=== PATIENT | female | born 1980 | race Caucasian/White ===

== ENCOUNTER 2020-02-10 11:04 | Outpatient (NON) | payer OTHER, SELFPAY ==
[2020-02-11 13:34] LABS: SARS-CoV-2 RNA PCR Negative
== END 2020-02-10 11:05 ==
DX: Z20.828 Contact with and (suspected) exposure to other viral communicable diseases (principal)
CPT/HCPCS: 87635; C9803; U0003

== ENCOUNTER 2023-04-01 02:27 | Day surgery (SDC) | payer OTHER, SELFPAY ==
--- NOTE | 2023-03-27 16:11 | SUR.PREOP ---
Report to the Outpatient Waiting Room, entrance under the green pavilion located off [facility], at time 0600 on date 04/01/23. Planned Procedure Time: 0730. Time changes happen often and if your time is changed the preop area will call you the afternoon before. - You and your visitor will be asked to self-screen and do not enter if you have any COVID symptoms. - A mask is optional within the hospital at this time. Patients may have clear liquids (water, carbonated beverages, clear teas, apple juice) until 3 hours prior to surgery with a maximum of 20 ounces. - NO CLEAR LIQUIDS AFTER 0430 - No food from midnight until time of surgery - Infants may have breast milk until 4 hours before surgery, infant formula 6 hours prior to surgery. - Children will be allowed to drink immediately following surgery. If applicable, please bring a bottle or sippy cup to assist with drinking. Juice, water, soda, and popsicles are readily available. For infants on formula, please bring formula the day of surgery. Pacifiers are allowed. Take the following medications with a SIP of water the morning of surgery: [id number] Please no make-up, nail tuvaluan, hairspray, perfume, deodorant, or body powder the day of surgery. No jewelry (including any body piercings) or valuables the day of surgery, leave them at home. Please take a shower or bath the night before, or the morning of, surgery with an antibacterial soap. Wear comfortable, loose fitting clothing. Children are encouraged to wear pajamas. - Jewelry must be removed prior to entering the operating room. Rings and piercings that are not removed may be cut off. - The hospital will not accept responsibility for valuables. - Please leave all valuables, including medications, at home the day of surgery. If you are going home after surgery, a licensed route driver salesperson must drive you home. - NO public transportation without another adult if you receive anesthesia. - We recommend that an adult stay with you for 24 hours following discharge. - We also recommend that you do not drive, make important decision, drink alcoholic beverages, or take any drugs that were not prescribed by your health care provider for at least 24 hours after your discharge time. For Pediatric surgeries, we recommend two adults accompany the child home. Follow any additional instructions given to you from your surgeon. If you or anyone in your household have experienced Covid symptoms in the past week, please notify your surgeon or the nurse liaison at the phone number below for possible testing. Telephone instructions given to DANIELLE MADRID and asked if any additional questions and then verbalized understanding. Patient advised to call surgeon office or pre surgery nurse liaison [phone] if any additional questions.
[2023-03-27 16:19] VITALS: BMI 29.1
--- NOTE | 2023-04-01 07:00 | P.PNAN_ITS ---
Anes - Initial Pre Proc Eval Procedure: Operation Date: 04/01/23 07:30 Proposed Procedures p Hysteroscopy with Elena Endometrial Ablation - Dimitry Tariq MD Date/Time: 04/01/23 07:00 Surgeon: Dimitry Tariq MD Pre Op Diagnosis: menorrhagia Patient Data Age: 42 Gender: F Height: 1.7 m Weight: 84.5 kg Allergies Allergy/AdvReac Type Severity Reaction Status Date / Time ibuprofen Allergy Severe Difficulty Verified 04/01/23 06:33 Breathing paroxetine Allergy Unknown Hives Verified 04/01/23 06:33 Home Medications Medication Instructions Recorded Confirmed Type methylphenidate HCl 20 mg tablet 20 mg PO HS 03/27/23 04/01/23 History methylphenidate HCl 36 mg 36 mg PO DAILY 03/27/23 04/01/23 History tablet,extended release 24 hr olanzapine 15 mg tablet 15 mg PO HS 03/27/23 04/01/23 History vilazodone 40 mg tablet 40 mg PO DAILY 03/27/23 04/01/23 History Patient hx anesthesia problems: none Family hx anesthesia problems: none Results Review: All pre-operative results and documents have been reviewed as part of the pre- operative evaluation. [facility] Past Medical History Medical History ADHD Anxiety Arthritis delivery delivered Depression H/O: HTN (hypertension) Headache, migraine Hx of migraines Lt arm numbness Obesity Surgical History Surgical History History of cholecystectomy Hx of LASIK Family History Family History Other Alcoholism Anxiety Cerebrovascular accident Chest pain Depression Drug abuse Headache, migraine Heart disease Hypertension Obesity Psychiatric care Social History Social History Years smoked: 2 Smoking status: Former smoker Tobacco type: cigarettes Smoking end date: 04/20/17 Spiritual care concerns: No Anes - Eval Final PreProcedure Day of Procedure 04/01/23 07:00 Patient weight: overweight Heart: regular rate and rhythm Lungs: decreased breath sounds Airway: Mallampati scale class II Neurological: alert and oriented Last oral intake: >/= 8 hours ASA classification: III Emergent: no Anesthetic plan: proceed Anesthesia type and monitoring: general GIVS and standard monitoring Results Review: All pre-operative results and documents have been reviewed as part of the pre- operative evaluation. Informed Consent: The patient's anesthetic plan and its attendant risks and benefits were discussed with the patient/family/POA. Questions were solicited and answers provided to the satisfaction of the patient/family/POA.
[2023-04-01] MEDS: ACETAMINOPHEN 500 MG TABLET 1000 MG PO (07:10)
[2023-04-01] MEDS: LACTATED RINGERS 1,000 ML 30 ML IV CONT (07:11)
--- NOTE | 2023-04-01 07:14 | WPDHPUPDATE1 ---
History and Physical Update Update Date/Time: 04/01/23 07:14 History and Physical has been reviewed, including an updated exam of the patient. There are NO changes in the patient's condition. Risks, benefits, and alternatives have been discussed and questions answered. Patient agrees to proceed with procedure.
--- NOTE | 2023-04-01 07:19 | PM.IMHP ---
H&P: HPI History of Present Illness Date/Time: 04/01/23 07:19 Chief Complaint: Menorrhagia Narrative: this patient is a 42-year-old female with menorrhagia and endometrial polyp. We agreed to perform hysteroscopy with polypectomy and endometrial ablation. She understands the risks of the procedure. She understands the procedure very well. She understands that injuries may occur that result in hospitalization, more surgery, severe illness. She understands risk of hemorrhage and infection. She denies any nausea, vomiting, fever, chills. She denies any chest pain shortness of breath. Review of Systems Review of Systems: All systems reviewed & are unremarkable except as noted in HPI and below Constitutional: Constitutional: Denies chills, Denies fatigue, Denies fever(s) and Denies weakness Eyes: Eyes: Denies blurry vision, Denies change in vision, Denies loss of peripheral vision, Denies loss of vision, Denies other visual disturbances and Denies eye pain ENT: Denies vertigo, Denies dizziness, Denies hearing loss, Denies mouth pain, Denies nasal obstruction, Denies neck mass and Denies neck pain Cardiovascular: Cardiovascular: Denies chest pain, Denies diaphoresis, Denies syncope, Denies leg edema and Denies dyspnea Respiratory: Respiratory: Denies chest congestion, Denies cough, Denies hemoptysis, Denies dyspnea and Denies wheezing Gastrointestinal: Gastrointestinal: Denies abdominal pain, Denies constipation, Denies diarrhea, Denies nausea and Denies vomiting Genitourinary: Genitourinary: Denies hematuria, Denies change in libido, Denies nocturia, Denies genital lesions, Denies flank pain and Denies urinary urgency Musculoskeletal: Musculoskeletal: Denies abnormal gait, Denies back pain, Denies myalgias, Denies arthralgias, Denies joint swelling, Denies muscle weakness and Denies neck pain Integumentary/Breasts: Skin/Breast: Denies swelling, Denies breast pain, Denies breast mass, Denies dry skin, Denies nipple discharge, Denies unusual bruising and Denies jaundice Neurologic: Denies Neuro-related abnormal movements, Denies Abnormal speech present, Denies abnormal gait, Denies behavioral changes, Denies confusion, Denies vertigo, Denies dizziness, Denies syncope, Denies loss of vision, Denies memory loss, Denies convulsions and Denies weakness Psychiatric: Psychiatric: Denies abnormal sleep pattern, Denies behavioral changes, Denies change in libido, Denies confusion, Denies depression, Denies anhedonia and Denies memory loss Endocrine: Endocrine: Reports no additional endocrine complaints, Denies change in libido and Denies fatigue Hematologic/Lymphatic: Hematologic/Lymphatic: Reports no additional hematologic/lymphatic complaints Allergic/Immunologic: Allergic/Immunologic: Reports no additional allergic/immunologic complaints and Denies wheezing PMFSH Past Medical History Medical History ADHD Anxiety Arthritis delivery delivered Depression H/O: HTN (hypertension) Headache, migraine Hx of migraines Lt arm numbness Obesity Surgical History Surgical History History of cholecystectomy Hx of LASIK Family History Family History Other Alcoholism Anxiety Cerebrovascular accident Chest pain Depression Drug abuse Headache, migraine Heart disease Hypertension Obesity Psychiatric care Social History Social History Years smoked: 2 Smoking status: Former smoker Tobacco type: cigarettes Smoking end date: 04/20/17 Spiritual care concerns: No Meds Home Medications and Allergies Home Medications Medication Instructions Recorded Confirmed Type methylphenidate HCl 20 mg tablet 20 mg PO HS 03/27/23 04/01/23 History methylphenidate HCl 36 mg 36 mg PO HERMANN
[2023-04-01 07:32] VITALS: BP 150/81; PULSE 78; RESP 20; TEMP 36.5; O2SAT 100
[2023-04-01 08:05] VITALS: BP 131/73; PULSE 81; RESP 14; TEMP 36.1; O2SAT 97
--- NOTE | 2023-04-01 08:18 | W.PM.PROC2 ---
Procedure Note - Detailed Date of Procedure 04/01/23 Pre-op Diagnosis menorrhagia Post-op Diagnosis Same Procedure Performed endometrial ablation with hysteroscopy d&c Surgeon Dimitry Tariq MD Anesthesia MAC Indications Severe menorrhagia Findings Normal vulva vagina and cervix. Normal endometrium. Description of Procedure The patient was taken to the operating room. She was prepped and draped in the dorsal lithotomy position after induction of mac anesthesia. A speculum was placed in the vagina. Cervix grasped with a tenaculum. The cervix was dilated to about 1 cm. The hysteroscope was inserted. The above findings were noted. Endometrial curettage was performed with a medium-size curette. All surfaces of the endometrium were affected by the curettage. The specimens were collected and sent to pathology. Measurements were taken of the uterus and cervix. The uterine length was then entered into the hand piece of the Elena device. The device was inserted into the intrauterine cavity. The array of the device was expanded. The balloon cuff was inflated. A good seal was achieved. The energy and safety cycles were initiated and completed. The array was collapsed and the instrument was withdrawn after deflating the balloon cuff. Hysteroscope was reinserted. Above findings were noted. The hysteroscope was removed. The patient tolerated the procedure well. The speculum and tenaculum were removed. She was taken to recovery in stable condition. Sponge lap and needle counts were correct x2. Estimated Blood Loss 15 Pathology Yes Complications No immediate complications Condition Stable Disposition Same day
[2023-04-01 08:35] VITALS: BP 141/86; PULSE 65; RESP 14
[2023-04-01] MEDS: oxyCODONE HCL (*CRX) 5 MG TAB IR PO (08:36)
== END 2023-04-01 08:45 | disposition home or self-care (01) ==
PROVIDERS: Visit Provider Obstetrics & Gynecology
PROC: 0U5B8ZZ Destruction of Endometrium, Via Natural or Artificial Opening Endoscopic (ICD-10-PCS; CPT 58563; principal; 2023-04-01 07:30)
DX: N92.0 Excessive and frequent menstruation with regular cycle (principal); F90.9 Attention-deficit hyperactivity disorder, unspecified type; F41.9 Anxiety disorder, unspecified; Z87.891 Personal history of nicotine dependence
CPT/HCPCS: 58563; 88305; A9270; J1100; J2250; J2405; J2704; J3010; J7120

== ENCOUNTER 2023-07-28 15:23 | Outpatient (CLI) | payer OTHER, MEDICAID, SELFPAY ==
--- NOTE | ~2023-07-28 | MM_ITS ---
EXAMINATION: MM screening nikole BI w alexei HISTORY: Screening mammogram TECHNIQUE: Craniocaudal and mediolateral oblique 3-D tomosynthesis images were obtained and synthetic 2-D images were generated. CAD analysis was submitted and interpreted. COMPARISON: Baseline examination BREAST PARENCHYMAL COMPOSITION: There are scattered areas of fibroglandular density. FINDINGS: There is no evidence of suspicious mass, calcification, or architectural distortion to sugg est malignancy in either breast. IMPRESSION: 1. No mammographic evidence of malignancy. 2. Recommend routine screening mammography in one year. BI-RADS Category 1: Negative Reviewed, dictated and finalized at location A.
== END 2023-07-28 15:24 | disposition home or self-care (01) ==
PROVIDERS: Visit Provider Obstetrics & Gynecology
DX: Z12.31 Encounter for screening mammogram for malignant neoplasm of breast (principal)
CPT/HCPCS: 77063; 77067

== ENCOUNTER 2025-04-14 06:12 | Outpatient (CLI) | payer OTHER, MEDICAID, SELFPAY ==
--- OUTSIDE RECORDS SUMMARY | 2025-04-14 06:15 | XMS_ITS | Encounter Summary ---
Author Organization [facility] Address [address] [place] [address] Care Team Providers Care Hvac R Instructor Name Role Phone Edith Stark NP Primary Care Provider [phone] Encounter Details Date Type Department Care Team (Late st Contact Info) Description 04/01/2025 Playground Sessionst Message Enc [facility] Medical Group Family & Internal Medicine [facility] [address] [place] [address] [place] [address] [facility] [address] [place], [place] [id number] Ear infection Social History Tobacco Use Types Packs/Day Years Used Date Smoking Tobacco: Some Days Cigarettes Passive Smoke Exposure: Past Smokeless Tobacco: Never Alcohol Use Standard Drinks/Week Comments Yes 0 (1 standard drink = 0.6 oz pur e alcohol) rarely AUDIT-C Answer Date Recorded Frequency of Alcohol Consumption Never 04/30/2018 Average Number of Drinks Not on file 019 Frequency of Binge Drinking Not on file 04/20 PHQ-2 Answer Date Recorded Patient Health Questionnaire-2 Score 0 10/19/2024 Comments No Sex and Gender Information Value Date Recorded Sex Assigned at Female 05/04/2024 9:21 AM 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 [place] [address] documented as of this encounter Visit Diagnoses Not on filedocumented in this encounter Additional Health Concerns Assessment Noted Time PHQ-9 Depression Total Score: 4 10/20/19 25 3:52 PM CDT documented as of this encounter Care Teams Hvac R Instructor Relationship Specialty [place] [address] [place] [address] PCP - General Nurse Practitioner Family 03/23/23 documented as of this encounter
--- OUTSIDE RECORDS SUMMARY | 2025-04-14 06:15 | XMS_ITS | Encounter Summary ---
Author Organization [facility] Address [address] [place] [address] Care Team Providers Care Gasoline Engine Inspector Name Role Phone Edith Stark NP Primary Care Provider Encounter Details Date Type Department Care Team (Late st Contact Info) Description 12/28/2024 XenoOne Message Enc [facility] Family & Internal Medicine [facility] [id number] [place] [phone] [place] [address] [facility] [address] [place] [address] E.R. 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 Mcgill ordered the MRI for her. I let Edith know. documented in this encounter Plan of Treatment Upcoming Encounters Date Type Department Care Team (Late st Contact Info) Description 05/04/2025 7:00 AM RETURNED TELEPHONE EQUIPMENT APPRAISER Appointment [facility] [address] [place] [address] [place] [phone] [place] [address] documented as of this encounter Visit Diagnoses Not on filedocumented in this encounter Additional Health Concerns Assessment Noted Time PHQ-9 Depression Total Score: 4 10/20/19 25 3:52 PM CDT documented as of this encounter Care Teams Gasoline Engine Inspector Relationship Specialty [place] [address] [place] [address] PCP - General Nurse Practitioner Family 03/23/23 documented as of this encounter
--- OUTSIDE RECORDS SUMMARY | 2025-04-14 06:15 | XMS_ITS | Encounter Summary ---
Author Organization [facility] Address [address] [place] [address] Care Team Providers Care Delivery Lead Name Role Phone Philippe Ivory MD Primary Care Provide r Encounter Details Date Type Department Care Team (Late st Contact Info) Description 08/06/2003 Emergency [facility] [place], [address] [facility] [address] [place] [address] Er, Authorized P NO ADDRESS ON FILE IRRITABLE COLON (Primary Dx) Social History Tobacco Use Types Packs/Day Years Used Date Smoking Tobacco: Never Assessed Comments Unknown Sex and Gender Information Value Date Recorded Sex Assigned at Not on file Legal Sex Female 3:09 AM 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
--- OUTSIDE RECORDS SUMMARY | 2025-04-14 06:15 | XMS_ITS | Clinical Summary ---
Author Organization [facility] Address [facility] [place] [address] Care Team Providers Care Shadow Graph Weight Operator Name Role Phone Edith Stark NP Primary Care Provider [phone] Allergies Active Allergy Reactions Criticality Noted Date Comments Bupropion Other (see comment) 02/07/2020 Intolerance Hydromorphone Rash Low 04/21/2024 Diphenhydramine Hives 02/05/2015 Ibuprofen Unknown 02/23/2014 Paroxetine Hives 02/23/2014 Medications Cholecalciferol (VITAMIN D) 125 MCG (5000 UT) CapIndications:Vi tamin D deficiency Take 5,000 Units by mouth daily. 4 Active cyclobenzaprine (FLEXERIL) 10 MG tabletIndications :Muscle spasm of back,Chronic bilateral low back pain without sciatica TAKE 1 TABLET(10 MG) BY MOUTH TWICE DAILY NEEDED FOR MUSCLE SPASMS 60 tablet 5 Active ferrous sulfate, 65 mg elemental, 325 (65 FE) MG tabletIndications :Iron deficiency anemia, unspecified iron deficiency anemia type Take 1 tablet (325 mg total) by mouth daily with breakfast. 90 tablet 3 5 Active amLODIPine (NORVASC) 5 MG tabletIndications :Chest pain, unspecified type,Primary hypertension Take 1 tablet (5 mg total) by mouth daily. 90 tablet 3 5 Active OLANZapine (ZYPREXA) 15 MG tabletIndications :Bipolar 1 disorder, depressed (CMS/HCC HHS/HCC) Take 0.5 tablets (7.5 mg total) by mouth nightly at bedtime. 30 tablet 2 5 Active losartan-hydroCHL OROthiazide (HYZAAR) 50-12.5 MG tabletIndications :Primary hypertension Take 1 tablet by mouth daily. 90 tablet 5 Active clonazePAM (KLONOPIN) 0.5 MG tabletIndications :Anxiety Take 1 tablet (0.5 mg total) by mouth 2 (two) times daily as needed for Anxiety. 90 tablet 2 5 Active methylphenidate (RITALIN) 20 MG tabletIndications :Attention deficit hyperactivity disorder (ADHD), predominantly inattentive type Take 1 tablet (20 mg total) by mouth daily with supper. 30 tablet 5 Active methylphenidate CR (CONCERTA) 54 MG tabletIndications :Attention deficit hyperactivity disorder (ADHD), predominantly inattentive type Take 1 tablet (54 mg total) by mouth every morning. 30 tablet 5 Active HYDROcodone-aceta minophen (NORCO) 5-325 MG tabletIndications :Chronic Pain Take 1 tablet by mouth every 8 (eight) hours as needed for Pain. Indications : Chronic Pain 90 tablet 5 Active vilazodone (VIIBRYD) 20 MG tabletIndications :Recurrent major depressive disorder, in partial remission Take 1 tablet (20 mg total) by mouth daily. Take with food 90 tablet 1 5 Active ondansetron (ZOFRAN) 4 MG tabletIndications :Nausea and vomiting, unspecified vomiting type Take 1 tablet (4 mg total) by mouth every 8 (eight) hours as needed. 30 tablet 5 Active pregabalin (LYRICA) 75 MG capsuleIndication s:History of gastric surgery,Numbness and tingling,Chronic bilateral low back pain without sciatica Take 1 capsule (75 mg total) by mouth 2 (two) times daily. 60 capsule 2 5 Active clonazePAM (KLONOPIN) 0.5 MG tabletIndications :Anxiety Take 1 tablet (0.5 mg total) by mouth 2 (two) times daily as needed for Anxiety. 90 tablet 2 5 03/20/20 25 Discontinu ed(Reorder ) methylphenidate (RITALIN) 20 MG tabletIndications :Attention deficit hyperactivity disorder (ADHD), predominantly inattentive type Take 1 tablet (20 mg total) by mouth daily with supper. 30 tablet 5 04/01/20 25 Discontinu ed(Reorder ) methylphenidate CR (CONCERTA) 54 MG tabletIndications :Attention deficit hyperactivity disorder (ADHD), predominantly inattentive type Take 1 tablet (54 mg total) by mouth every morning. 30 tablet 5 04/01/20 25 Discontinu ed(Reorder ) vilazodone (VIIBRYD) 20 MG tabletIndications :Recurrent major depressive disorder, in partial remission Take 1 tablet (20 mg total) by mouth daily. Take with food 30 tablet 5 04/06/20 25 Discontinu ed(Reorder ) HYDROcodone-aceta minophen (NORCO) 5-325 MG tabletIndications :Chronic Pain Take 1 tablet by mouth every 8 (eight) hours as needed for Pain. Indications : Chronic Pain 90 tablet 5 04/05/20 25 Discontinu ed(Reorder ) ondansetron (ZOFRAN) 4 MG tabletIndications :Nausea and vomiting, unspecified vomiting type Take 1 tablet (4 mg total) by mouth every 8 (eight) hours as needed. 30 tablet 5 04/11/20 25 Discontinu ed(Reorder ) pregabalin (LYRICA) 75 MG capsuleIndication s:History of gastric surgery,Numbness and tingling,Chronic bilateral low back pain without sciatica Take 1 capsule (75 mg total) by mouth 2 (two) times daily. 60 capsule 2 5 04/11/20 25 Discontinu ed(Reorder ) Active Problems Problem Noted Date Diagnosed Date Pain in left hip 03/15/2025 Chronic bilateral low back pain without sciatica 03/15/2025 High thyroid stimulating hormone (TSH) level S/P ACL repair 09/02/2024 S/P medial meniscus repair of right knee 025 New ACL tear, right, initial encounter Tear of PCL (posterior cruci ate ligament) of knee, right, initial encounter 05/02/2024 Right knee pain 05/02/2024 Obesity (BMI 30-39.9) 01/12/2024 B12 deficiency 01/12/2024 Vitamin D deficiency 01/12/2024 Primary hypertension 01/12/2024 Assessment & Plan (01/31/2025 3:45 PM CDT): - Blood pressure remains elevated despite being on amlodipine 5 mg daily for nearly two months. Consistent readings in the 160s/100s range are reported, along with dizziness. - Discussed adding losartan 50 mg/hydrochlorothiazide 12.5 mg once daily to her regimen. Advised to continue amlodipine and monitor blood pressure closely. She can take amlodipine in the evening and the new medication in the morning if preferred. Recommended reducing salt intake. Orders: losartan-hydroCHLOROthiazide (HYZAAR) 50-12.5 MG tablet; Take 1 tablet by mouth daily. Chronic right-sided low back pain with left-side d sciatica 01/12/2024 Numbness and tingling 01/12/2024 History of fracture of skull 01/12/2024 Memory loss 01/12/2024 Cannabis use disorder 05/07/2022 Overview (01/04/2024): Health education was provided. Motivational therapy will continue. Bipolar 1 disorder, depressed 05/01/2022 Pain disorder 04/28/2022 Overview (01/04/2024): Last Assessment & Plan: Improving. Will continue Neurontin and NSAIDs will be continued. Tourette's syndrome 04/27/2022 Overview (01/04/2024): Last Assessment & Plan: Ongoing: Low dose of Risperdal. 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 Addition of Risperdal will also help. Meningioma 12/12/2019 Medication management 10/16/2019 Premenstrual dysphoric disorder 05/15/2019 Overview (01/04/2024): Premenstrual dysphoric disorder;Recorded Elsewhere: No Location: [facility] Source: EHR Chronic: N Practice ID: [id number] Billable Time: 02:30:00 PM Bleeding 05/15/2019 Overview (01/04/2024): Abnormal vaginal bleeding;Recorded Elsewhere: No Location: [facility] Source: EHR Chronic: N Practice ID: [id number] Billable Time: 02:30:00 PM Chronic cough 01/04/2019 Assessment & Plan (01/04/2019 2:58 PM CDT): She will try flonase and zyrtec daily for 2 weeks and we will also get PFTs Current severe episode of ma karime depressive disorder without psychotic features without prior episode 05/02/2018 Assessment & Plan (07/13/2018 12:55 PM CDT): Will try switching buproprion to citalpram as I think she would benefit more form SSRI despite her concerns about weight gain -FU in 1 month to assess benefit and if needs dose adjustment Assessment & Plan (05/02/2018 10:06 AM CONTINUOUS DRYOUT OPERATOR): Will try treating with wellbutrin given least likely to affect weight. Also discussed getting a therapist and she has already gotten some names from insurance and plans on following up with that. Discussed what to expect with wellbutrin -FU in 1 month PRINCE (obstructive sleep apnea) 05/02/2018 Assessment & Plan (01/04/2019 2:58 PM CDT): Rec getting as soon as possible as will help with fatigue mood Assessment & Plan (07/13/2018 12:55 PM CDT): Home study showed PRINCE now needs cpap titration. She will call sleep lab here to get set up. Order is in Assessment & Plan (05/02/2018 10:07 AM CONTINUOUS DRYOUT OPERATOR): Has witnessed apnea while sleeping, daytime fatigue. -Will order sleep study Migraine 07/19/2016 Assessment & Plan (05/25/2019 8:05 AM CONTINUOUS DRYOUT OPERATOR): I think headaches right now due to tension headache from neck strain. Will try flexeril at night, con't stretching, heat and reassess after that gets better. May need to change topamax to TCA Insomnia 04/26/2015 PTSD (post-traumatic stress disorder) 08/22/2014 Anxiety 08/16/2014 Chronic daily headache 08/16/2014 Drop attack 08/16/2014 Morbid obesity with BMI of 40.0-44.9, adult 07/20 Assessment & Plan (05/25/2019 8:04 AM CONTINUOUS DRYOUT OPERATOR): Will try and see if saxenda covered. Discussed what to expect. Advised to calori track, keep log of food exercise and UF in 1 month to see how it is going. Resolved Problems Problem Noted Date Diagnosed Date Resolved Date Acute recurrent frontal sinusitis 05/18/2018 09/20/2019 Assessment & Plan (07/13/2018 12:56 PM CDT): Suspect viral but if no improvement in 1-2 days can start the augmentin Assessment & Plan (05/18/2018 1:25 PM CONTINUOUS DRYOUT OPERATOR): Given abrupt worsening, ear exam and duration will treat with augmentin. con't OTC meds if helping with symptoms Encounters Date Type Department Care Team Description 04/06/2025 11:40 AM CONTINUOUS DRYOUT OPERATOR Office Visit [facility] [address] [address] Edith Stark NP Follow Up (Medication management ) 04/06/2025 Travel 04/01/2025 MyChart Message Enc [facility] [address] [place] [id number] Edith Stark, ELI Ear infection 03/15/2025 3:44 PM CONTINUOUS DRYOUT OPERATOR - 03/15/2025 11:59 PM CONTINUOUS DRYOUT OPERATOR Hospital Encounter [facility] [address] [place] [address] Laine Davey, PT Edith Stark NP Low Back Pain; Hip Pain Discharge Disposition: Home or Self Care (Routine Discharge) 03/15/2025 Travel 03/08/2025 1:00 PM CONTINUOUS DRYOUT OPERATOR Office Visit [facility] [address] [address] Edith Stark NP Follow Up (1 month medication management follow up/ left side hip pain ) 03/08/2025 Travel 03/07/2025 Orders Only [facility] [address] [address] Ally Kolb MA 01/31/2025 3:00 PM CDT Office Visit [facility] [address] [address] Andreina Steven MD Hypertension (Dizzines, HTN, chest pain, heart rate 126); Hip Pain (L hip pain/ back pain down leg to knee) 01/31/2025 Travel 01/25/[address] [address] Edith Stark NP Other (S/S of scabies ) from Last 3 Months Immunizations Immunization Administration Dates Next Due FLUCELVAX (ccIIV3, TRIVALENT, 0.5mL) 12/14/2023 Hepatitis B Vac Recomb Adj 2 0 Mcg/0.5ml Im Sosy 12/31/2023,11/26/2023 Influenza Adult (Generic) 01/26/2023,02/03/2018, 04/09/2015 Pneumococcal (Pneumovax 23) 02/09/2020, 5 Tdap (Boostrix) 11/29/2022 Tdap (Generic) 11/26/2023 Family History Medical History Relation Comments Alcohol Abuse Father Heart Attack Father Stroke Father bipolar disorder Sister Relation Status Comments Father Sister Social History Tobacco Use Types Packs/Day Years Used Date Smoking Tobacco: Some Days Cigarettes Passive Smoke Exposure: Past Smokeless Tobacco: Never Tobacco Cessation:Ready to Q uit: No; Counseling Given: Yes Alcohol Use Standard Drinks/Week Comments Yes 0 [...] Sex Assigned at Female 05/04/2024 9:21 AM CONTINUOUS DRYOUT OPERATOR Legal Sex Female 8:14 PM CDT Gender Identity Not on file Sexual Orientation Not on file Last Filed Vital Signs Vital Sign Reading Time Taken Comments Blood Pressure 128/81 04/06/2025 11:42 AM CONTINUOUS DRYOUT OPERATOR Pulse 81 04/06/2025 11:42 AM CONTINUOUS DRYOUT OPERATOR Temperature 36.7 C (98.1 F) 04/06/2025 11:42 AM CONTINUOUS DRYOUT OPERATOR Respiratory Rate 18 04/06/2025 11:42 AM CONTINUOUS DRYOUT OPERATOR Oxygen Saturation 98% 03/08/2025 1:01 PM CONTINUOUS DRYOUT OPERATOR Inhaled Oxygen Concentration - - Weight 59.9 kg (132 lb) 04/06/2025 11:42 AM CONTINUOUS DRYOUT OPERATOR Height 167.6 cm (5' 6) 04/06/2025 11:42 AM CONTINUOUS DRYOUT OPERATOR Body Mass Index 21.31 04/06/2025 11:42 AM CONTINUOUS DRYOUT OPERATOR Plan of Treatment Upcoming Encounters Date Type Department Care Team (Late st Contact Info) Description 05/04/2025 7:00 AM CONTINUOUS DRYOUT OPERATOR Appointment [facility] [address] [place], [place] [id number] [place] [address] [place] [address] Health Maintenance Due Date Last Done Comments Cervical Cancer Screening Pap Smear (Age 30 to 64) Every 3 Years 1979 Colorectal Cancer Screening Colonoscopy (10 Years) 1979 Annual Physical 08/12/1982 HPV Vaccines (1 - 3-dose SCDM series) 08/12/2006 Cervical Cancer Screening Pap with HPV Testing (Age 30 to 64) Every 5 Years 08/12/2009 Cervical Cancer Screening with HPV 08/12/2009 Mammogram Screening 2019 Pneumococcal Vaccine: Pediatrics (0 to 5 Years) and At-Risk Patients (6 to 49 Years) (2 of 2 - PCV) 02/08/2021 02/09/2020, 04/09/2015 Influenza Adult (#1) 2025 12/14/2023, 01/26/2023, 02/03/2018, Additional history exists COVID-19 Vaccine ( season) 2026 12/31/2023, 11/29/2021, 01/17/2021, Additional history exists Postponed from 12/19/2024 (Patient Refused) DTaP, Tdap and Td Vaccines (3 - Td or Tdap) 11/25/2033 11/26/2023, 11/29/2022 Hepatitis C Completed 12/18/2022 Hepatitis B Vaccines Completed 12/31/2023, 11/26/19 24 PHQ-2 (Physician [place]) Completed 10/19/2024 Hepatitis A Vaccines Aged Out No long er eligible based on patient's age to complete this topic Meningococcal B Vaccine Aged Out No l onger eligible based on patient's age to complete this topic Meningococcal Vaccine Aged Out No devorah meng eligible based on patient's age to complete this topic RSV Immunizations Under 20 Months Aged Out No longer eligible based on patient's age to complete this topic Insurance [facility] MEDICAID Advance Directives Documents on File Type Date Recorded Patient Owner Expl anation Advance Directives and Living Will 04/04/2014 12:00 AM ADVANCED DIRECTIVES Advance Directives and Living Will 04/04/2014 12:00 AM ADVANCED DIRECTIVES Advance Directives and Living Will 02/15/2014 12:00 AM ADVANCED DIRECTIVES Advance Directives and Living Will 02/15/2014 12:00 AM ADVANCED DIRECTIVES Advance Directives and Living Will 01/13/2014 12:00 AM ADVANCED DIRECTIVES Advance Directives and Living Will 12/09/2013 12:00 AM ADVANCED DIRECTIVES Care Teams Shadow Graph Weight Operator Relationship Specialty [place] [address] [facility] [address] [place] [address] PCP - General Nurse Practitioner Family 03/23/23
--- OUTSIDE RECORDS SUMMARY | 2025-04-14 06:16 | XMS_ITS | Encounter Summary ---
Author Organization [facility] Address [facility] [place] [address] Care Team Providers Care Lithographic Etcher Name Role Phone Lindy Melissa MD Primary Care Provider [facility] Philippe Najera MD Primary Care Provider [phone] Edith Stark NP Primary Care Provider Fannie Simpson [facility] Primary Care Provider + Ana Azar APRN Primary Care Provider + [phone] Edith Stark APPAREL FASHION DESIGNER Primary Care Provider Encounter Details Date Type Department Care Team (Late st Contact Info) Description 10/28/2017 Abstract [facility] [address] [place] [address] , Generic Conversion, Social History Tobacco Use Types Packs/Day Years Used Date Smoking Tobacco: Never Assessed Comments Unknown Sex and Gender Information Value Date Recorded Sex Assigned at Female 05/04/2024 9:21 AM STATION SUPERVISOR Legal Sex Female 8:14 PM CDT Gender Identity Not on file Sexual Orientation Not on file documented as of this encounter Plan of Treatment Upcoming Encounters Date Type Department Care Team (Late st Contact Info) Description 05/04/2025 7:00 AM STATION SUPERVISOR Appointment [facility] [place] [address] [place] [address] Edith Stark, APPAREL FASHION DESIGNER [address] [place] [address] documented as of this encounter Visit Diagnoses Not on filedocumented in this encounter Additional Health Concerns Infection Onset Date Last Indicated Resolved Time COVID-19 Rule Out 11/04/2019 11/04/2019 11/05/2019 10:48 PM CDT COVID-19 Rule Out 05/27/2023 05/27/2023 05/27/2023 9:47 AM STATION SUPERVISOR COVID-19 Rule Out 05/04/2024 05/04/2024 05/04/2024 9:52 AM STATION SUPERVISOR documented as of this encounter Care Teams Lithographic Etcher Relationship Specialty Start Date End Date Lindy Melissa MD PCP - General INTERNAL MEDICINE 04/30/18 09/19/19 Philippe Ivory MD PCP - General INTERNAL MEDICINE 09/20/19 04/17/22 Edith Stark, ELI [address] [place] [address] PCP - General Nurse Practitioner Family 04/18/2205/26 Fannie Simpson FNP-BC [address] [place] [address] PCP - General Nurse Practitioner Family 05/27/2210/18 Ana Azar APRN [address] [place] [address] PCP - General NURSE PRACTITIONER 10/31/22 03/22/23 Edith Stark, APPAREL FASHION DESIGNER [address] [place] [address] PCP - General Nurse Practitioner Family 03/23/23 documented as of this encounter
--- OUTSIDE RECORDS SUMMARY | 2025-04-14 06:16 | XMS_ITS | Clinical Summary ---
Author Organization [facility] Address [address] [place] [address] Phone Care Team Providers Care Salesperson Terrazzo Tiles Name Role Phone Philippe Ivory MD Primary Care Provide r Allergies Active Allergy Reactions Criticality Noted Date Comments Bupropion Other (See Comments) 02/07/2020 Intolerance Ibuprofen Anaphylaxis High 02/07/2020 Paroxetine Hives High 02/23/2014 Paroxetine Hcl Other (See Comments) 02/07/2020 Intolerance Medications norgestimate-et hinyl estradioL 0.25 mg-35 mcg tablet Take 1 Tablet by mouth daily. Active venlafaxine (EFFEXOR XR) 75 mg Extended Release 24 hour capsule Starting 05/09/22 Take 3 Capsules (225 mg) by mouth daily with breakfast. 90 Capsule 05/08/2022 10:41 AM COPY MANAGER 05/09/2022 Active cholecalciferol , vitamin D3, 1,000 unit Take 2 Tablets (2,000 Units) by mouth daily. 05/09/2022 Active cloNIDine HCL (CATAPRES) 0.2 mg tablet Take 1 Tablet (0.2 mg) by mouth daily at bedtime. 30 Tablet 05/08/2022 10:41 AM COPY MANAGER 05/08/2022 Active cyanocobalamin 1,000 mcg Tablet Starting 05/09/22 Take 1 Tablet (1,000 mcg) by mouth daily. 30 Tablet 05/08/2022 10:41 AM COPY MANAGER 05/09/2022 Active cyclobenzaprine (FLEXERIL) 10 mg tablet Take 1 Tablet (10 mg) by mouth 3 times daily as needed for Spasm. 45 Tablet 05/08/2022 10:41 AM COPY MANAGER 05/08/2022 Active diclofenac sodium (VOLTAREN) 50 mg Tablet, Delayed Release (E.C.) Take 1 Tablet (50 mg) by mouth 3 times daily as needed (pain). 45 Tablet 05/08/2022 10:41 AM COPY MANAGER 05/08/2022 Active multivitamin,ca lcium,minerals, iron,folic acid (THERA-M,THERA- M PLUS) 9 mg iron-400 mcg Tablet Take 1 Tablet by mouth daily. 05/09/2022 Active pantoprazole (PROTONIX) 40 mg Tablet, Delayed Release (E.C.) Starting 05/09/22 Take 1 Tablet (40 mg) by mouth daily. 30 Tablet 05/08/2022 10:41 AM COPY MANAGER 05/09/2022 Active risperiDONE (RisperDAL) 1 mg tablet Take 1 Tablet (1 mg) by mouth 2 times daily. 60 Tablet 05/08/2022 10:41 AM COPY MANAGER 05/08/2022 Active clonazePAM (KlonoPIN) 1 mg tabletIndicatio ns:Generalized anxiety disorder Take 1 Tablet (1 mg) by mouth 2 times daily as needed for Anxiety. 45 Tablet 05/08/2022 10:41 AM COPY MANAGER 05/08/2022 Active Active Problems Problem Noted Date Diagnosed Date Cannabis use disorder 05/07/2022 Overview (05/07/2022): Health education was provided. Motivational therapy will continue. Bipolar 1 disorder, depressed 05/01/2022 Pain disorder 04/28/2022 Assessment & Plan (05/06/2022 9:18 AM COPY MANAGER): Improving. Will continue Neurontin and NSAIDs will be continued. 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 Addition of Risperdal will also help. Assessment & Plan (04/27/2022 3:35 PM COPY MANAGER): Suboptimal control. She has been agitated and aggressive as noted in HPI. Will continue Effexor and haldol prn as needed Severe recurrent major depre ssion without psychotic features 04/27/2022 Assessment & Plan (05/07/2022 9:37 AM COPY MANAGER): Improving. Continue current treatment. Will continue Effexor. Will continue Risperdal as adjunct. Assessment & Plan (04/27/2022 3:36 PM COPY MANAGER): Worsening. Continue current treatment. SP and asssault precautions. she is on 96 hr hold to assess safety risk. Plan: Will continue effexor Tourette's syndrome 04/27/2022 Assessment & Plan (05/07/2022 9:30 AM COPY MANAGER): Ongoing: Low dose of Risperdal. Assessment & Plan (04/27/2022 3:34 PM COPY MANAGER): chronic. She is on concerta will restart Anxiety disorder 04/27/2022 Assessment & Plan (05/01/2022 9:24 AM COPY MANAGER): Uncontrolled. Effexor and Trazodone Assessment & Plan (04/27/2022 3:37 PM COPY MANAGER): chronic and worsening. Will continue klonopin Class 2 obesity in adult 07/23/2020 Assessment & Plan (05/06/2022 9:19 AM COPY MANAGER): Dietary oversight. S/P Gastric bypass. Supplements have been added. Immunizations Immunization Administration Dates Next Due (PNEUMOVAX 23)(50 YRS UP) PN EUMOCOCCAL POLYSACCHARIDE (PPV23) 0.5 ML, IM 02/09/2020 Influenza Seasonal Unspecified Formulation IM Social History Tobacco Use Types Packs/Day Years Used Date Smoking Tobacco: Former Cigarettes 0 Q uit: 2011 Smokeless Tobacco: Never Tobacco Cessation:Counseling Given: Not Answered Alcohol Use Standard Drinks/Week Comments Not Currently 0 (1 standard drink = 0.6 oz pur e alcohol) Comments No Sex and Gender Information Value Date Recorded Sex Assigned at Not on file Legal Sex Female 3:09 AM COPY MANAGER Gender Identity Not on file Sexual Orientation Not on file Last Filed Vital Signs Vital Sign Reading Time Taken Comments Blood Pressure 140/76 05/08/2022 8:23 AM COPY MANAGER Pulse 85 05/08/2022 8:23 AM COPY MANAGER Temperature 35.7 C (96.3 F) 05/08/2022 8:23 AM COPY MANAGER Respiratory Rate 18 05/08/2022 8:23 AM COPY MANAGER Oxygen Saturation 100% 05/08/2022 8:23 AM COPY MANAGER Inhaled Oxygen Concentration - - Weight 99.2 kg (218 lb 9.6 oz) 05/04/2022 10:00 AM COPY MANAGER Height 170.2 cm (5' 7) 04/27/2022 12:16 AM COPY MANAGER Body Mass Index 34.24 04/27/2022 12:16 AM COPY MANAGER Plan of Treatment Health Maintenance Due Date Last Done Comments DTAP/TDAP/TD VACCINES (1 - Tdap) 08/12/1998 HEPATITIS B VACCINES (1 of 3 - 19+ 3-dose series) 07/20 HPV/Cotest (21-29) 08/12/2000 CERVICAL CANCER SCREENING 08/12/2009 HPV/Cotest (30-65) 08/12/2009 PAP SMEAR 08/12/2009 BREAST CANCER SCREENING 2019 COLORECTAL SCREENING 08/12/2024 Colorectal Cancer Screening 08/12/2024 FIT-DNA Q 3 years 08/12/2024 FIT/FOBT Q 1 year 08/12/2024 Flex Sig/CT Colonography Q 5 years 08/12/2024 INFLUENZA VACCINE (#1) 2024 02/03/2018 HPV VACCINES (No Doses Required) Completed Insurance [facility] CHO[facility] FUND OA PLUS [employer] Advance Directives For more information, please contact: [phone] * Full Code (Latest Code Status on File) Date Activated Date Inactivated Comments 04/26/2022 11:34 PM 05/08/2022 2:58 PM * Full Code Date Activated Date Inactivated Comments 07/23/2020 4:45 PM 07/24/2020 2:14 PM * Full Code Date Activated Date Inactivated Comments 07/23/2020 10:04 AM 07/23/2020 4:44 PM * Full Code Date Activated Date Inactivated Comments 02/17/2020 11:47 AM 02/17/2020 3:38 PM Care Teams Salesperson Terrazzo Tiles Relationship Specialty Start Date End Date Philippe Ivory MD PCP - General Internal Medicine 02/10/20
--- OUTSIDE RECORDS SUMMARY | 2025-04-14 06:16 | XMS_ITS | Data Portability ---
Author Organization [facility] Address [address] [place] [address] Care Team Providers Care Unishear Operator Name Role Phone TEX BROOKS Primary Care Provider [phone] Assessment No assessment recorded. Plan of Treatment Reminders Order Date Submit Date Provider Last Modified By Organization Details Last Modified Time Details Appointments SURG PRE OP 2024 03:30P Jeannette TARIQ MD Not available Not available Not available Robotic TLH 2025 10:30A Jeannette TARIQ MD Not available Not available Not available SURG POST OP 2025 11:45A Jeannette TARIQ MD Not available Not available Not available Lab hsv-2 igg Ab, serum 2022 023 [facility] (Lab), [address], [place], [address], 12/24/2022 12:58:26 hbcab (hepatiti s B core Ab) igm, serum 2022 023 [facility] (Lab), [address] , [place], [address], 12/24/2022 12:58:27 HBsAg (hepatiti s B surface Ag), serum 2022 023 [facility] (Lab), [address], [place], [address], 12/24/2022 12:58:24 hepatitis C virus Ab, serum 2022 023 [facility] (Lab), [address], [place], [address], 12/24/2022 12:58:25 unlisted lab - HIV 1/2 antigen/a ntibody, reflex confirmat ion 2022 023 [facility] (Lab), [address], [place], [address], 12/24/2022 12:58:24 RPR (rapid plasma reagin), serum 2022 023 [facility] (Lab), [address], [place], [address], 12/24/2022 12:58:26 Referral None recorded. Procedures None recorded. Surgeries robotic assisted hysterect catalino with salpingec arthur (SURG) 2024 026 [email or web address] [facility] [address], [address], 03/02/2025 10:58:18 hysterosc opy, with endometri al ablation (SURG) 2022 023 [facility] [address], [address], 04/01/2023 09:25:56 Imaging US, pelvis [email or web address], [address], [address], [place], [address], 03/15/2025 11:38:27 US, transvagi nal 2024 025 [email or web address] [place], [address], [address], [place], [address], 03/15/2025 11:38:27 Medication Orders Diflucan 150 mg tablet 2022 023 [email or web address] [facility], [facility] [place], [address], 02/21/2023 12:36:49 clotrimaz ole-betam ethasone 1 %-0.05 % topical cream 2022 023 [email or web address] [facility], [facility] [place], [address], 02/21/2023 12:36:10 Patient TargetsNo targets recorded. Patient Instructions Encounter Date Encounter Id Patient Instructions Last Modified By Organization Details Last Modified Time 02/21/2023 [id number] . [email or web address] Not available 02/21 12:55:15 Reason for Referral None Reported. Results Created Date Observation Date Name Description Value Unit Range Abnormal Flag Note LastModifiedBy Organization Detail LastModifiedTime 12/19/1912/18/2022 HEPAT ITIS B SURFA CE ANTIG EN hepatitis B surface antigen Non-re active non-re active This assay was perfo rmed using [employer] n reage nts and test kits. Value s obtai brea with other assay metho ds or kits canno t be used inter alfredo eably . Not Available [facility] (Lab) [address], [place], [address], 12/24/2022 12:58:24 12/19/1912/18/2022 HIV 1/2 ANTIG EN/AN TIBOD Y, REFLE X CONFI RMATI ON HIV antigen/anti body Nonrea ctive nonrea ctive HIV-1 antig en and HIV-1 /HIV- 2 antib odies were not detec crispin. No labor atory evide nce of HIV infec tion. Not Available [facility] (Lab) [address], [place], [address], 12/24/2022 12:58:24 12/19/1912/18/2022 HEPAT ITIS C ANTIB ASCENCION SCREE N, REFLE X TO CONFI RMATI ON hepatitis C antibody Non-re active non-re active Antib odies to HCV Not Detec crispin, does not exclu de the possi bilit y of expos ure to HCV. Not Available [facility] (Lab) [address] [facility], [place], [address], 12/24/2022 12:58:25 12/19/19 23 12/18/2022 HERPE S SIMPL EX VIRUS TYPE 2 SPECI FIC AB, IGG herpes simplex virus 2 IgG Negati ve negati ve Not Available [facility] (Lab) [address] [facility], [place], [address], 12/24/2022 12:58:25 12/19/19 23 12/18/2022 HERPE S SIMPL EX VIRUS TYPE 2 SPECI FIC AB, IGG herpes simples virus 2 IgG, quant <0.2 ai 0.0-0. 8 Not Available [facility] (Lab) [address] [facility], [place], [address], 12/24/2022 12:58:25 12/19/19 23 12/18/2022 RPR SCREE N/REF JOHNNA TITER /FTA RPR screen Nonrea ctive nonrea ctive Not Available [facility] (Lab) [address] [facility], [place], [address], 12/24/2022 12:58:26 12/19/19 23 12/18/2022 HEPAT ITIS B CORE, IGM hepatitis B core Ab, IgM CANCEL LED Reord ered Not Available [facility] (Lab) [address] [facility], [place], [address], 12/24/2022 12:58:27 12/19/19 23 12/18/2022 MISC LAB TEST, REFER RED RESUL TS test results See Note HEPAT ITIS B CORE ANTIB ASCENCION (IGM) TEST NAME RESUL T FLAG UNITS REF RANGE ===== ==== ===== = ==== ===== ===== ==== HBV core IgM SerPl Ql IA NON-R EACTI VE NON-R EACTI VE For addit ional infor sami butts e refer to http: //tavo devi.elda stdia gnost ics.c om/fa q/FAQ (This link is being provi ded for infor matio nal/ educa kris l purpo ses only. ) Test Perfo rmed at: [facility] [address] [place] [address] Antho ny V Ananth s Perfo rming Organ izati on Infor matadam n: Site ID: CB Name: [facility] Addre ss: [address] [place] [address] Direc tor: Antho ny V Ananth s Not Available [facility] (Lab) [address], [place], [address], 12/25/2022 11:51:30 07/28/19 24 07/28/2023 MAMMO , scree elpidio, bilat eral No observ ation record ed. [place] [address], [place], [address], 07/29/2023 10:35:10 03/14/20 25 03/14/2025 US, pelvi s No observ ation record ed. [facility] [address], [place], [address], 03/14/2025 18:15:33 03/14/20 25 03/14/2025 US, trans vagin al No observ ation record ed. [facility] [address], [place], [address], 03/14/2025 18:15:43 03/14/20 25 03/14/2025 US, pelvi s No observ ation record ed. [email or web address] [address], [place], [address], 03/15/2025 16:28:35 Result Notes None recorded. Problems Name Problem SNOMED Code Status Onset Date Resolution Date Notes Provider Name and Address Organization Details Recorded Time SNOMED CT Concept Active 2016 Encntr for gynecological assistant exam (general) (routine) w/o abn findings;Re corded Elsewhere: No Location : [facility] ce: EHR Chronic : N Practice ID: [id number] Billab le Time: 02:30:00 PM Not Available [facility] 0 21:23:29 Micturitio n finding Active 2016 Urinary incontinenc e;Recorded Elsewhere: No Location : [facility] ce: EHR Chronic : N Practice ID: 0001 Billab le Time: 02:30:00 PM Not Available [facility] 0 21:23:29 Finding of pattern of menstrual cycle Active 2016 Irregular interval between menstrual bleeding;Re corded Elsewhere: No Location : [facility] ce: EHR Chronic : N Practice ID: 0001 Billab le Time: 02:30:00 PM Not Available [facility] 0 21:23:[address] Concept Active 2019 Anxiety disorder, unspecified ;Recorded Elsewhere: No Location : [facility] ce: EHR Chronic : N Practice ID: 0001 Billab le Time: 09:45:00 AM Not Available [facility] 0 21:23:29 Finding of regularity of menstrual cycle Active 2019 Irregular menstruatio n, unspecified ;Recorded Elsewhere: No Location : [facility] ce: EHR Chronic : N Practice ID: 0001 Billab le Time: 11:15:00 AM Not Available [facility] 0 21:23:29 Bleeding Active 2019 Abnormal vaginal bleeding;Re corded Elsewhere: No Location : [facility] ce: EHR Chronic : N Practice ID: 0001 Billab le Time: 02:30:00 PM Not Available [facility] 0 21:23:29 Premenstru al dysphoric disorder [id number] Active 2019 Premenstrua l dysphoric disorder;Re corded Elsewhere: No Location : [facility] ce: EHR Chronic : N Practice ID: 0001 Billab le Time: 02:30:00 PM Not Available [facility] 0 21:23:30 Emotional state finding Active 2019 Anxiety depression; Recorded Elsewhere: No Location : [facility] ce: EHR Chronic : N Practice ID: 0001 Billab le Time: 01:00:00 PM Not Available [facility] 21:23:29 Problem Notes None recorded. Procedures Surgical History Date Name Laterality Status Provider Name and Address Organization Details Recorded Time 04/20/19 24 Date of Last Mammogram completed Amaliatommie Robbins [facility] 02/27/2025 17:37:32 04/01/20 23 HYSTEROSCOPY, WITH ENDOMETRIAL ABLATION (SURG) [facility] 05/05/2023 22:46:40 09/12/19 21 Date of Last Pap Smear completed [facility] 09/11/2020 15:43:37 07/20/19 21 Gstr rstcv px shrt ronak-en-y completed [facility] 09/11/2020 15:47:50 04/20/19 13 Tubal Ligation completed Loretta Joshi [facility] 12/18/2022 15:06:08 04/20/19 12 section completed [facility] 09/11/2020 15:47:06 04/20/19 08 section completed [facility] 09/11/2020 15:46:58 04/20/19 05 section completed [facility] 09/11/2020 15:47:02 Cholecystectomy completed [facility] 09/11/2020 15:47:19 rectal polypectomy completed [facility] 09/11/2020 15:47:28 repair of umbilical hernia completed [facility] 09/11/2020 15:47:36 Dilation and Curettage completed [facility] 09/11/2020 15:48:03 Imaging Results None recorded. Procedure Notes None recorded. Medical Equipment None Reported. Allergies Allergen ID Allergen Name Allergen Category Reaction Reaction Severity Criticality Documentation Date Start Date Code Code System Note Provider Name and Address Organization Details Recorded Time 76116 ibuprofen medicatio n Not available Not available Not available 04/06/2020 5640 RxNorm Comme nt: Locat ion: Sharon rahman [facility]; Not Available [facility] 14:14:49 43892 paroxetin e Not available Not available Not available Not available 09/11/2020 04105 RxNorm Lynda Vásquez [facility] 14:53:23 15322 bupropion Not available other Not available Not available 03/14/20252019 00523 RxNorm Intol eranc e Not Available [employer] - prod 16:50:51 79195 hydromorp gunner medicatio n rash Not available low 03/14/20252024 3423 RxNorm Not Available [employer] - prod 16:50:51 36801 diphenhyd ramine hydrochlo ride medicatio n hives Not available Not available 03/14/20252014 1362 RxNorm Not Available [employer] - prod 16:50:51 34047 paroxetin e hydrochlo ride medicatio n Not available Not available Not available 03/14/20252019 54780 0 RxNorm Intol eranc e Not Available [employer] - prod 16:50:53 Medications Name Sig Start Date Stop Date Status Note LastModified by Organization Details LastModified Time Prometriu m 200 mg capsule take 1 capsule by oral route every day for 10 days in the evening sequenti ally per 28 day cycle 06/02 completed Prescrib ed Elsewher e: No Locat ion: [facility] Jeannette odify By: jean carlos Gunn er DateTime : 05/24/19 03:37:01 PM Not Available Not Available Not Available cyclobenz aprine 10 mg tablet TAKE 1 TABLET BY MOUTH THREE TIMES DAILY 02/27 completed Not Available Not Available Not Available metformin 500 mg tablet TAKE 1 TABLET BY MOUTH EVERY DAY AT BEDTIME 02/21 completed Not Available Not Available Not Available ivermecti n 3 mg tablet TAKE 5 TABLETS BY MOUTH ONCE, THEN REPEAT THE DOSE IN 2 WEEKS 02/27 completed Not Available Not Available Not Available clonidine HCl 0.1 mg tablet TAKE 1 TABLET BY MOUTH TWICE DAILY. TAKE IN MORNING AND WITH DINNER 02/21 completed Not Available Not Available Not Available venlafaxi ne ER 75 mg capsule,e xtended release 24 hr 02/21 completed Not Available Not Available Not Available gabapenti n 600 mg tablet TAKE 1 TABLET BY MOUTH THREE TIMES DAILY active Not Available Not Available No t Available doxycycli ne hyclate 100 mg capsule TAKE 1 CAPSULE BY MOUTH EVERY 12 HOURS FOR 10 DAYS 02/24 completed Not Available Not Available Not Available venlafaxi ne 75 mg tablet 02/21 completed Not Available Not Available Not Available trazodone 50 mg tablet TAKE 1 TABLET BY MOUTH EVERY NIGHT AT BEDTIME 02/21 completed Not Available Not Available Not Available fluconazo le 150 mg tablet TAKE 1 TABLET BY MOUTH EVERY OTHER DAY 02/21 completed Not Available Not Available Not Available hydrocodo ne 5 mg-acetam inophen 325 mg tablet TAKE 1 TABLET BY MOUTH EVERY 6 HOURS FOR 7 DAYS NEEDED 02/27 completed Not Available Not Available Not Available methylphe nidate 20 mg tablet TAKE 1 TABLET BY MOUTH AFTERNOO N NEEDED 02/27 completed Not Available Not Available Not Available ondansetr on HCl 4 mg tablet TAKE 1 TABLET BY MOUTH EVERY 8 HOURS NEEDED active Not Available Not Available No t Available prednison e 20 mg tablet 02/27 completed Not Available Not Available Not Available dextroamp hetamine- amphetami ne 10 mg tablet 02/21 completed Not Available Not Available Not Available clonazepa m 0.5 mg tablet TAKE 1 TABLET BY MOUTH TWICE DAILY NEEDED active Not Available Not Available No t Available gabapenti n 400 mg capsule 02/21 completed Not Available Not Available Not Available clonazepa m 1 mg tablet TAKE 1 TABLET BY MOUTH EVERY DAY NEEDED 02/21 completed Not Available Not Available Not Available sumatript an 50 mg tablet TAKE TAKE 1 TABLET BY MOUTH FOR MIGRAINE NEEDED 02/21 completed Not Available Not Available Not Available cyanocoba alison (vit B-12) 1,000 mcg tablet 02/21 completed Not Available Not Available Not Available hydroxyzi ne pamoate 50 mg capsule TK 1 C PO QID PRA 02/21 completed Not Available Not Available Not Available olanzapin e 10 mg tablet TAKE 1 TABLET BY MOUTH AT BEDTIME 02/27 completed Not Available Not Available Not Available topiramat e 25 mg tablet TK 1 T PO QD HS 02/21 completed Not Available Not Available Not Available metronida zole 500 mg tablet 02/21 completed Not Available Not Available Not Available acetamino phen 300 mg-codein e 30 mg tablet TAKE 1 TABLET BY MOUTH EVERY 6 HOURS NEEDED FOR PAIN 02/27 completed Not Available Not Available Not Available omeprazol e 40 mg capsule,d elayed release 02/21 completed Not Available Not Available Not Available olanzapin e 7.5 mg tablet TAKE 1 TABLET BY MOUTH EVERY NIGHT AT BEDTIME 2024 active Not Available Not Available Not Avai lable lithium carbonate ER 450 mg tablet,ex tended release TAKE 1 TABLET BY MOUTH TWICE DAILY 02/21 completed Not Available Not Available Not Available alprazola m 0.5 mg tablet TAKE 1 TABLET BY MOUTH ONCE DAILY NEEDED 12/19 completed Not Available Not Available Not Available clonidine HCl 0.2 mg tablet TAKE 1 TABLET BY MOUTH EVERY NIGHT AT BEDTIME 02/21 completed Not Available Not Available Not Available dextroamp hetamine- amphetami ne ER 20 mg 24hr capsule,e xtend release TAKE 1 CAPSULE BY MOUTH EVERY MORNING 02/21 completed Not Available Not Available Not Available phenazopy ridine 100 mg tablet TAKE ONE TABLET BY MOUTH THREE TIMES DAILY NEEDED FOR PAIN 02/21 completed Not Available Not Available Not Available doxycycli ne monohydra te 100 mg capsule 02/21 completed Not Available Not Available Not Available hydrocodo ne 7.5 mg-acetam inophen 325 mg tablet TAKE 1 TABLET BY MOUTH EVERY 6 HOURS FOR 7 DAYS NEEDED 02/27 completed Not Available Not Available Not Available cephalexi n 500 mg capsule 02/21 completed Not Available Not Available Not Available pantopraz ole 40 mg tablet,de layed release TAKE 1 TABLET BY MOUTH EVERY MORNING 02/21 completed Not Available Not Available Not Available trazodone 150 mg tablet 02/21 completed Not Available Not Available Not Available clotrimaz ole-betam ethasone 1 %-0.05 % topical cream APPLY TO THE AFFECTED AND SURROUND ING AREAS OF SKIN BY TOPICAL ROUTE 2 TIMES PER DAY IN THE MORNING AND EVENING FOR 2 WEEKS 02/21 completed Not Available Not Available Not Available dextroamp hetamine- amphetami ne 20 mg tablet TAKE 1 TABLET BY MOUTH EVERY MORNING 02/21 completed Not Available Not Available Not Available divalproe x ER 500 mg tablet,ex tended release 24 hr TK ONE T PO QAM AND 2 TS PO HS 02/21 completed Not Available Not Available Not Available lidocaine 5 % topical patch APPLY ONE PATCH TOPICALL Y TO THE AREA OF PAIN QD, LEAVE 12HRS ON AND 12 HRS OFF 02/21 completed Not Available Not Available Not Available clonazepa m 2 mg tablet TAKE 1 TABLET BY MOUTH EVERY DAY NEEDED 02/21 completed Not Available Not Available Not Available olanzapin e 15 mg tablet TAKE 1 TABLET BY MOUTH EVERY NIGHT AT BEDTIME 02/27 completed Not Available Not Available Not Available diclofena c sodium 50 mg tablet,de layed release 02/21 completed Not Available Not Available Not Available fluvoxami ne 50 mg tablet TAKE 1 TABLET BY MOUTH TWICE DAILY 02/21 completed Not Available Not Available Not Available norethind brown acetate 5 mg tablet take1 tablet by oral route every day for 10 consecut moni days (of each month). 05/24 completed Prescrib ed Elsewher e: No Locat ion: [facility] M odify By: jean carlos sevilla DateTime : 05/16/19 02:30:00 PM Not Available Not Available Not Available methylpre dnisolone 4 mg tablets in a dose pack FOLLOW PACKAGE DIRECTIO NS 02/27 completed Not Available Not Available Not Available losartan 50 mg-hydroc hlorothia zide 12.5 mg tablet TAKE 1 TABLET BY MOUTH DAILY active Not Available Not Available No t Available propranol ol 20 mg tablet TK 1 T PO TID 02/21 completed Not Available Not Available Not Available Zoloft 25 mg tablet take 1 tablet by oral route every day 09/11 completed Prescrib ed Elsewher e: No [facility] By: fabio freedman Gary siomara DateTime : 05/09/19 11:45:00 AM Not Available Not Available Not Available ondansetr on 4 mg disintegr ating tablet 02/21 completed Not Available Not Available Not Available risperido ne 1 mg tablet 02/21 completed Not Available Not Available Not Available dicyclomi ne 10 mg capsule TK ONE C PO TID. 02/21 completed Not Available Not Available Not Available prazosin 2 mg capsule TAKE 1 CAPSULE BY MOUTH EVERY NIGHT AT BEDTIME 02/21 completed Not Available Not Available Not Available methylphe nidate ER 36 mg tablet,ex tended release 24 hr TAKE 1 TABLET BY MOUTH DAILY 02/21 completed Not Available Not Available Not Available diazepam 5 mg tablet TK 1 T PO 30 TO 60 MINUTES BEFORE MRI NO DRIVING OR OPERATIN G HEAVY MACHINER Y FOR 5 HOURS AFTER USE 02/21 completed Not Available Not Available Not Available hydroxyzi ne pamoate 25 mg capsule 02/21 completed Not Available Not Available Not Available Vitamins and Minerals tablet 02/21 completed Prescrib ed Elsewher e: Yes Loca tion: [facility] odify By: [email or web address] Encounte r DateTime : 06/11/19 02:30:00 PM Not Available Not Available Not Available escitalop porter 10 mg tablet 02/21 completed Not Available Not Available Not Available escitalop porter 20 mg tablet TAKE 1 TABLET DAILY 02/21 completed Not Available Not Available Not Available Sprintec (28) 0.25 mg-0.035 mg tablet Take 1 tablet every day by oral route. 09/13 completed Not Available Not Available Not Available atomoxeti ne 40 mg capsule 02/21 completed Not Available Not Available Not Available hydrocodo ne 7.5 mg-acetam inophen 325 mg/15 mL oral solution 02/21 completed Not Available Not Available Not Available topiramat e 50 mg tablet 02/21 completed Not Available Not Available Not Available emtricita bine 200 mg-tenofo vir disoproxi l fumarate 300 mg tablet TAKE 1 TABLET BY MOUTH DAILY 02/21 completed Not Available Not Available Not Available atomoxeti ne 80 mg capsule 02/21 completed Not Available Not Available Not Available atomoxeti ne 100 mg capsule TAKE 1 CAPSULE BY MOUTH EVERY MORNING 02/21 completed Not Available Not Available Not Available quetiapin e 50 mg tablet TAKE 3 TABLETS (150MG) BY MOUTH EVERY DAY AT BEDTIME 02/21 completed Not Available Not Available Not Available FeroSul 325 mg (65 mg iron) tablet active Not Available Not Available Not Available Isentress 400 mg tablet 02/21 completed Not Available Not Available Not Available desvenlaf axine succinate ER 50 mg tablet,ex tended release 24 hr TAKE 1 TABLET BY MOUTH EVERY DAY 02/21 completed Not Available Not Available Not Available topiramat e (bulk) 99.7 % powder 02/[address] [facility] e: Yes Loca tion: [facility] odify By: gilberto hoskins DateTime : 05/07/19 09:45:00 AM Not Available Not Available Not Available quetiapin e ER 50 mg tablet,ex tended release 24 hr 02/21 completed Not Available Not Available Not Available vilazodon e 40 mg tablet TAKE 1 TABLET BY MOUTH DAILY active Not Available Not Available No t Available Biotene Dry Mouth Oral Rinse mouthwash TAKE 5ML BY MOUTH GARGLE AND SQUISH FOUR TIMES DAILY FOR MOUTH IRRITATI ON 02/21 completed Not Available Not Available Not Available Vraylar 3 mg capsule TAKE 1 CAPSULE BY MOUTH EVERY DAY IN THE EVENING 02/21 completed Not Available Not Available Not Available Slynd 4 mg (28) tablet Take 1 tablet by mouth daily 02/21 completed Not Available Not Available Not Available Caplyta 42 mg capsule TAKE 1 CAPSULE BY MOUTH EVERY NIGHT AT BEDTIME 02/21 completed Not Available Not Available Not Available Vitals Date Recorded Body height Body mass index (BMI) Body weight Systolic And Diastolic Provider Name and Address Organization Details Last Updated DateTime 12/18/2022 167.64 cm 29.5 kg/m2 04457.4 g 130/82 mm[Hg] Loretta Joshi [facility] 12/18/2022 15:04:58 Date Recorded Body height Body mass index (BMI) Body weight Systolic And Diastolic Provider Name and Address Organization Details Last Updated DateTime 02/21/2023 167.64 cm 30.8 kg/m2 03034.14 g 135/85 mm[Hg] Lynda Tobias [facility] 02/21/2023 12:28:49 Date Recorded Body height Body mass index (BMI) Body weight Systolic And Diastolic Provider Name and Address Organization Details Last Updated DateTime 02/27/2025 167.64 cm 22 kg/m2 15951.56 g 120/61 mm[Hg] Amaliatommie Robbins [facility] 02/27/2025 17:33:26 Date Recorded Body height Body mass index (BMI) Body weight Systolic And Diastolic Provider Name and Address Organization Details Last Updated DateTime 04/09/2023 167.64 cm 31.2 kg/m2 66375.33 g 174/103 mm[Hg] Loretta Joshi [facility] 04/09/2023 17:21:59 Social History None recorded. Functional Status None recorded. Mental Status None recorded. Family History Relationship Description Onset Age of this Age Resolved Age Notes LastModified by Organization Details LastModified Time Father Hypertensive disorder [email or web address] Not available 2020 15:45:58 Father Hypercholest erolemia [email or web address] Not available 2020 15:46:16 Brother Hypertensive disorder [email or web address] Not available 2020 15:45:58 Brother Hypercholest erolemia [email or web address] Not available 2020 15:46:16 Mother Hypertensive disorder [email or web address] Not available 2020 15:45:58 Mother Hyperlipidem ia [email or web address] Not available 02/18 16:42:26 Medical History Condition Response Allergies (Food, seasonal, environmental ) N Other Y Drug/Latex Allergies/Reactions N Blood Transfusion N Breast Cancer N Dermatologic Disorders N Lung Disease N Defects or Inherited Disease N Breast Problem N Gestational Diabetes N Hematologic disorders N Anesthesia Complications N History of STI N Deep Vein Thrombosis N Polycystic ovary syndrome N Anxiety Disorder N Autoimmune disease N Arthritis N Polyps N Infertility N Acid Reflux (GERD) N History of abnormal pap N Cancer N Varicosities N Stroke N Neurologic/Epilepsy N Endometriosis N High Cholesterol N Fibromyalgia N Headaches Y Kidney Disease N Heart Problems N Thyroid Problems N Kidney or Bladder Problems N GI Problems N Eating Disorder N Anemia N Art (IVF or FET) N Psychiatric Illness N Ovarian Cancer N Diabetes N Pulmonary (TB, Asthma) N Hepatitis/Liver Disease N No Past Medical History N Eczema N Urinary Tract Infection N Abuse/Domestic Violence N Asthma N Trauma/Violence N Depression/ depression N Heart Disease N Pre-Eclampsia N Hypertension N Osteoporosis N Thrombophilias N Gynecological History Statement/Question Response Abnormal Pap N Date of Last Mammogram 04/20/2023 Flow Moderate Date of LMP 01/02/2025 Was last menstrual period normal N STIs/STDs N HPV Vaccine N Current Control Method Tubal Ligat ion Are cycles usually normal N Sexually Active? Y Menses Monthly Y Date of Last Pap Smear 09/11/2020 Sexual Problems? N Desired Control Method Ablation LMP Approximate Obstetrics History GPAL:G 5 P 4 0 1 4 Type Value Full Term 4 Spontaneous 1 Living 4 Total 5 Past Encounters Encounter ID Performer Location Encounter Start Date Encounter Closed Date Diagnosis/Indication Diagnosis SNOMED-CT Code Diagnosis ICD10 Code Diagnosis IMO Codes Diagnosis Note [id number] Ivania Kwon , [facility] [address] [address] 09/11/2020 14:07:40 09/11/2020 15:53:35 Gynecologic examination [id number] Z01.419 Suggested Calcium with Vitamin D 1200-1500m g daily. Patient advised to get an annual flu shot in the fall and she could obtain at [facility] or [facility] clinic. Also to obtain TDap vaccinatio n if you have not had one in the last 10 years. Recommend yearly mammograms . Encouraged monthly self breast exams. Encourage safe sexual practices, to use condoms and limit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
--- OUTSIDE RECORDS SUMMARY | 2025-04-14 06:16 | XMS_ITS | Continuity of Care Document ---
Author Organization [facility] Address [address] [place] [address] Care Team Providers Care General Operations Agent Name Role Phone TEX BROOKS Primary Care Provider Assessment No assessment recorded. Plan of Treatment Reminders Order Date Submit Date Provider Last Modified By Organization Details Last Modified Time Details Appointments SURG PRE OP 2024 03:30P Jeannette SAMANIEGO MD Not available Not available Not available Robotic TLH 2025 10:30A Jeannette SAMANIEGO MD Not available Not available Not available SURG POST OP 2025 11:45A Jeannette SAMANIEGO MD Not available Not available Not available Lab None recorded. Referral None recorded. Procedures None recorded. Surgeries robotic assisted hysterect catalino with salpingec arthur (SURG) 2024 026 [id number] [facility], [facility], [place], [address], 03/02/2025 10:58:18 Imaging None recorded. Medication Orders None recorded. Patient TargetsNo targets recorded. Patient InstructionsNo instructions recorded. Reason for Referral None Reported. Results Created Date Observation Date Name Description Value Unit Range Abnormal Flag Note LastModifiedBy Organization Detail LastModifiedTime 03/14/2003/14/2025 US, pelvi s No observ ation record ed. [facility] [address], [place], [address], 03/14/2025 18:15:33 03/14/2003/14/2025 US, trans vagin al No observ ation record ed. [facility] [address], [place], [address], 03/14/2025 18:15:43 03/14/2003/14/2025 US, peljohnathon s No observ ation record ed. [email or web address] [address], [place], [address], 03/15/2025 16:28:35 Result Notes None recorded. 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) w/o abn findings;Re corded Elsewhere: No Location : [facility] ce: EHR Chronic : N Practice ID: 0001 Billab le Time: 02:30:00 PM Not Available [facility] 0 21:23:29 Micturitio n finding Active 2016 Urinary incontinenc e;Recorded Elsewhere: No Location : [facility] Sour ce: EHR Chronic : N Practice ID: 0001 Billab le Time: 02:30:00 PM Not Available [facility] 0 21:23:29 Finding of pattern of menstrual cycle Active 2016 Irregular interval between menstrual bleeding;Re corded Elsewhere: No Location : [facility] Sour ce: EHR Chronic : N Practice ID: 0001 Billab le Time: 02:30:00 PM Not Available [facility] 0 21:23:[address] Concept Active 2019 Anxiety disorder, unspecified ;Recorded Elsewhere: No Location : [facility] Sour ce: EHR Chronic : N Practice ID: 0001 Billab le Time: 09:45:00 AM Not Available [facility] 0 21:23:29 Finding of regularity of menstrual cycle Active 2019 Irregular menstruatio n, unspecified ;Recorded Elsewhere: No Location : [facility] Sour ce: EHR Chronic : N Practice ID: 0001 Billab le Time: 11:15:00 AM Not Available [facility] 0 21:23:29 Bleeding Active 2019 Abnormal vaginal bleeding;Re corded Elsewhere: No Location : [facility] Sour ce: EHR Chronic : N Practice ID: 0001 Billab le Time: 02:30:00 PM Not Available [facility] 0 21:23:29 Premenstru al dysphoric disorder 376607 Active 2019 Premenstrua l dysphoric disorder;Re corded Elsewhere: No Location : [facility] Sour ce: EHR Chronic : N Practice ID: 0001 Billab le Time: 02:30:00 PM Not Available [facility] 0 21:23:30 Emotional state finding Active 2019 Anxiety depression; Recorded Elsewhere: No Location : [facility] Sour ce: EHR Chronic : N Practice ID: 0001 Billab le Time: 01:00:00 PM Not Available [facility] 0 21:23:29 Problem Notes None recorded. Procedures Surgical History Date Name Laterality Status Provider Name and Address Organization Details Recorded Time 04/20/19 24 Date of Last Mammogram completed Amalia Robbins [facility] 02/27/2025 17:37:32 04/01/20 23 HYSTEROSCOPY, WITH ENDOMETRIAL ABLATION (SURG) completed Chandrika Sánchez [facility] 05/05/2023 22:46:40 09/12/19 21 Date of Last Pap Smear completed [facility] 09/11/2020 15:43:37 07/20/19 21 Gstr rstcv px shrt ronak-en-y completed Lynda [facility] 09/11/2020 15:47:50 04/20/19 13 Tubal Ligation completed Loretta Joshi [facility] 12/18/2022 15:06:08 04/20/19 12 section completed Lynda [facility] 09/11/2020 15:47:06 04/20/19 08 section completed Lynda [facility] 09/11/2020 15:46:58 01/01/20 05 section completed [facility] 09/11/2020 15:47:02 Cholecystectomy completed [facility] 09/11/2020 15:47:19 rectal polypectomy completed [facility] 09/11/2020 15:47:28 repair of umbilical hernia completed [facility] 09/11/2020 15:47:36 Dilation and Curettage completed [facility] 09/11/2020 15:48:03 Imaging Results None recorded. Procedure Notes None recorded. Medical Equipment None Reported. Allergies Allergen ID Allergen Name Allergen Category Reaction Reaction Severity Criticality Documentation Date Start Date Code Code System Note Provider Name and Address Organization Details Recorded Time 60814 ibuprofen medicatio n Not available Not available Not available 04/06/2020 5640 RxNorm Comme nt: [facility]at [facility]; Not Available [facility] 0 14:14:49 50185 paroxetin e Not available Not available Not available Not available 09/11/2020 38522 RxNorm [facility] 1 14:53:23 19170 bupropion Not available other Not available Not available 03/14/20252019 79045 RxNorm Intol eranc e Not Available teri - External Data Service - prod 5 16:50:51 96405 hydromorp gunner medicatio n rash Not available low 03/14/20252024 3423 RxNorm Not Available teri - External Data Service - prod 16:50:51 95279 diphenhyd ramine hydrochlo ride medicatio n hives Not available Not available 03/14/20252014 1362 RxNorm Not Available etri - External Data Service - prod 16:50:51 02040 paroxetin e hydrochlo ride medicatio n Not available Not available Not available 03/14/20252019 71068 0 RxNorm Intol eranc e Not Available teri - External Data Service - prod 16:50:53 Medications Name Sig Start Date Stop Date Status Note LastModified by Organization Details LastModified Time Lisa m 200 mg capsule take 1 capsule by oral route every day for 10 days in the evening sequenti ally per 28 day cycle 06/02 completed Prescrib ed Elsewher e: No Locat ion: [facility] odify By: jean carlos Gunn er DateTime [...] Prescrib ed Elsewher e: No Locat ion: [facility] odify By: jean carlos Encount er DateTime : 05/16/19 02:30:00 PM Not Available [...] Prescrib ed Elsewher e: No Locat ion: [facility] odify By: fabio Vega unter DateTime : 05/09/19 11:45:00 AM Not Available [...] Prescrib ed Elsewher e: Yes Loca tion: [facility] odify By: damion Rashid r DateTime : 06/11/19 02:30:00 PM Not [...] 99.7 % powder 02/21 completed Prescrib ed Elsewher e: Yes [facility] odify By: gilberto hoskins DateTime : 05/07/19 [...] Updated DateTime 02/27/2025 167.64 cm 22 kg/m2 40888.56 g 120/61 mm[Hg] Amalia Robbins [facility] 02/27/2025 17:33:26 Social History None recorded. Functional Status None [...] available 02/18 16:42:26 Medical History Condition Response Other Y Blood Transfusion N Dermatologic Disorders N Gestational Diabetes N Anxiety Disorder N Autoimmune disease N Arthritis N Polyps N Infertility N Acid Reflux (GERD) N Cancer N Varicosities N Stroke N Neurologic/Epilepsy N Fibromyalgia N Headaches Y Kidney Disease N Heart Problems N Kidney or Bladder Problems N Eating Disorder N Art (IVF or FET) N Hepatitis/Liver Disease N No Past Medical History N Urinary Tract Infection N Asthma N Trauma/Violence N Thrombophilias N Allergies (Food, seasonal, environmental ) N Breast Cancer N Drug/Latex Allergies/Reactions N Lung Disease N Defects or Inherited Disease N Breast Problem N Hematologic disorders N Anesthesia Complications N History of STI N Deep Vein Thrombosis N Polycystic ovary syndrome N History of abnormal pap N Endometriosis N High Cholesterol N Thyroid Problems N GI Problems N Anemia N Psychiatric Illness N Ovarian Cancer N Diabetes N Pulmonary (TB, Asthma) N Eczema N Abuse/Domestic Violence N Depression/ depression N Heart Disease N Pre-Eclampsia N Hypertension N Osteoporosis N Gynecological History Statement/Question Response Abnormal Pap [...] ICD10 Code Diagnosis IMO Codes Diagnosis Note [id number] Ervin Samaniego MD Home [address] [address] 02/27/2025 16:42:03 02/28/2025 08:52:40 Menorrhagia [id number] N92.0 [id number] This patient is a 44-year-ol d female [...] by Organization Details LastModified Time None Recorded Payers Encounter Date Sequence Insurance Name Policy Number Policy Thurman Covered Member ID Thurman Member ID Guarantor Name 02/27/2025 1 [facility] [id number] Mike oNwak [id number] Madonna Nowak 02/27/2025 2 [place] [facility] [employer] Madonna Nowak [id number] Madonna Nowak Notes Date Note Type Note Provider Name and Address Organization Details Recorded Time 02/27/2025 text/html Beer - Abnormal BleedingReported by Patient This patient [...] is risk of hemorrhage and infection. Ervin Samaniego MD [address], [place], [address], [facility] 02/27/2025 18:06:02 OBGyn Episode No OBEpisode recorded.
--- OUTSIDE RECORDS SUMMARY | 2025-04-14 06:16 | XMS_ITS | Encounter Summary ---
Author Organization [facility] Address [facility] [place] [address] Care Team Providers Care Freight Breaker Name Role Phone Lindy Melissa MD Primary Care Provider [facility] Philippe Najera MD Primary Care Provider [phone] Edith Stark NP Primary Care Provider Fannie Simpson [facility] Primary Care Provider + Ana Azar APRN Primary Care Provider + [phone] Edith Stark LOIN PULLER Primary Care Provider Encounter Details Date Type Department Care Team (Late st Contact Info) Description 07/10/2017 Abstract [facility] CONVERSION [address] [place] [address] , Generic Conversion, Social History Tobacco Use Types Packs/Day Years Used Date Smoking Tobacco: Never Assessed Comments Unknown Sex and Gender Information Value Date Recorded Sex Assigned at Female 05/04/2024 9:21 AM BUSINESS APPLICATIONS MANAGER Legal Sex Female 8:14 PM CDT Gender Identity Not on file Sexual Orientation Not on file documented as of this encounter Plan of Treatment Upcoming Encounters Date Type Department Care Team (Late st Contact Info) Description 05/04/2025 7:00 AM BUSINESS APPLICATIONS MANAGER Appointment [facility] [place] [address] [place] [address] Edith Stark, LOIN PULLER [address] [place] [address] documented as of this encounter Visit Diagnoses Not on filedocumented in this encounter Additional Health Concerns Infection Onset Date Last Indicated Resolved Time COVID-19 Rule Out 11/04/2019 11/04/2019 11/05/2019 10:48 PM CDT COVID-19 Rule Out 05/27/2023 05/27/2023 05/27/2023 9:47 AM BUSINESS APPLICATIONS MANAGER COVID-19 Rule Out 05/04/2024 05/04/2024 05/04/2024 9:52 AM BUSINESS APPLICATIONS MANAGER documented as of this encounter Care Teams Freight Breaker Relationship Specialty Start Date End Date Lindy Melissa MD PCP - General INTERNAL MEDICINE 04/30/18 09/19/19 Philippe Ivory MD PCP - General INTERNAL MEDICINE 09/20/19 04/17/22 Edith Stark, ELI [address] [place] [address] PCP - General Nurse Practitioner Family 04/18/2205/26 Fannie Simpson FNP-BC [address] [address] PCP - General Nurse Practitioner Family 05/27/2210/18 Ana Azar APRN [address] [place] [address] PCP - General NURSE PRACTITIONER 10/31/22 03/22/23 Edith Stark, LOIN PULLER [address] [address] PCP - General Nurse Practitioner Family 03/23/23 documented as of this encounter
--- OUTSIDE RECORDS SUMMARY | 2025-04-14 06:16 | XMS_ITS | Encounter Summary ---
Author Organization [facility] Address [address] [place] [address] Care Team Providers Care Buffing Machine Operator Semiautomatic Name Role Phone Edith Stark NP Primary Care Provider [phone] Encounter Details Date Type Department Care Team (Late st Contact Info) Description 11/11/2024 LocusLabs Message Enc [facility] Medical [facility] Family & Internal Medicine [facility] [address] [place] [address] [place] [address] [facility] [address] [place] [address] Injection Social History Tobacco Use Types Packs/Day Years Used Date Smoking Tobacco: Former Passive Smoke Exposure: Past Smokeless Tobacco: Never [...] Sex Assigned at Female 05/04/2024 9:21 AM ACCOUNT MANAGER TRAINEE Legal Sex Female 8:14 PM CDT Gender Identity Not on file Sexual Orientation Not on file documented as of this encounter Progress Notes * Edith Stark NP - 11/14/2024 8:[address] Craven or Eve would be able to but I've not been signed off. documented in this encounter Plan of Treatment Upcoming Encounters Date Type Department Care Team (Late st Contact Info) Description 05/04/2025 7:00 AM ACCOUNT MANAGER TRAINEE Appointment [facility] [address] [place] [address] [place] [address] [place] [address] documented as of this encounter Visit Diagnoses Not on filedocumented in this encounter Additional Health Concerns Assessment Noted Time PHQ-9 Depression Total Score: 4 10/20/19 25 3:52 PM CDT documented as of this encounter Care Teams Buffing Machine Operator Semiautomatic Relationship Specialty [place] [address] [place] [address] PCP - General Nurse Practitioner Family 03/23/23 documented as of this encounter
--- OUTSIDE RECORDS SUMMARY | 2025-04-14 06:16 | XMS_ITS | Encounter Summary ---
Author Organization [facility] Address [facility] [place] [address] Care Team Providers Care Filler Room Attendant Name Role Phone Lindy Melissa MD Primary Care Provider [facility] Philippe Najera MD Primary Care Provider [phone] Edith Stark NP Primary Care Provider Fannie Simpson [facility] Primary Care Provider + Ana Azar APRN Primary Care Provider + [phone] Edith Stark NP Primary Care Provider [phone] Encounter Details Date Type Department Care Team (Latest Contact Info) Description 01/13/2018 Abstract [facility] Lindy Melissa MD Social History Tobacco Use Types Packs/Day Years Used Date Smoking Tobacco: Never Assessed Comments Unknown Sex and Gender Information Value Date Recorded Sex Assigned at Female 05/04/2024 9:21 AM SPECIALTY FINISHING UTILITY PERSON Legal Sex Female 8:14 PM CDT Gender Identity Not on file Sexual Orientation Not on file documented as of this encounter Plan of Treatment Upcoming Encounters Date Type Department Care Team (Late st Contact Info) Description 05/04/2025 7:00 AM SPECIALTY FINISHING UTILITY PERSON Appointment [facility] [place] [address] [place] [address] Edith Stark AUTO HAULAWAY DRIVER [address] [place] [address] documented as of this encounter Visit Diagnoses Not on filedocumented in this encounter Additional Health Concerns Infection Onset Date Last Indicated Resolved Time COVID-19 Rule Out 11/04/2019 11/04/2019 11/05/2019 10:48 PM CDT COVID-19 Rule Out 05/27/2023 05/27/2023 05/27/2023 9:47 AM SPECIALTY FINISHING UTILITY PERSON COVID-19 Rule Out 05/04/2024 05/04/2024 05/04/2024 9:52 AM SPECIALTY FINISHING UTILITY PERSON documented as of this encounter Care Teams Filler Room Attendant Relationship Specialty Start Date End Date Lindy Melissa MD PCP - General INTERNAL MEDICINE 04/30/18 09/19/19 Philippe Ivory MD PCP - General INTERNAL MEDICINE 09/20/19 04/17/22 [place] [email or web address] [place] [address] PCP - General Nurse Practitioner Family 04/18/2205/26 Fannie Simpson FNP-BC [address] [address] PCP - General Nurse Practitioner Family 05/27/2210/18 Ana Azar APRN [address] [place] [address] PCP - General NURSE PRACTITIONER 10/31/22 03/22/23 Edith Stark, ELI [email or web address] [address] PCP - General Nurse Practitioner Family 03/23/23 documented as of this encounter
--- OUTSIDE RECORDS SUMMARY | 2025-04-14 06:16 | XMS_ITS | Encounter Summary ---
Author Organization [facility] Address [address] [place] [address] Care Team Providers Care Sugar Presser Name Role Phone Edith Stark NP Primary Care Provider [phone] Encounter Details Date Type Department Care Team (Late st Contact Info) Description 10/27/2024 MyChart Message Enc [facility] Outpatient Rehab [address] [place] [address] Carolyn Kline PTA October 27 PT Appt Social History Tobacco Use Types Packs/Day Years [...] Sex Assigned at Female 05/04/2024 9:21 AM FIRE EXTINGUISHER REPAIRER Legal Sex Female 8:14 PM CDT Gender Identity Not on file Sexual Orientation Not on file documented as of this encounter Plan of Treatment Upcoming Encounters Date Type Department Care Team (Late Contact Info) Description 05/04/2025 7:00 AM FIRE EXTINGUISHER REPAIRER Appointment [facility] [place] [address] [place] [address] [place] [address] [place] [address] documented as of this encounter Visit Diagnoses Not on filedocumented in this encounter Additional Health Concerns Assessment Noted Time PHQ-9 Depression Total Score: 4 10/20/19 25 3:52 PM CDT documented as of this encounter Care Teams Sugar Presser Relationship Specialty [place] [address] [address] PCP - General Nurse Practitioner Family 03/23/23 documented as of this encounter
--- OUTSIDE RECORDS SUMMARY | 2025-04-14 06:16 | XMS_ITS | Encounter Summary ---
Author Organization [facility] Address [address] [place] [address] Care Team Providers Care Book Cleaner Name Role Phone Edith Stark NP Primary Care Provider [phone] Encounter Details Date Type Department Care Team (Late Contact Info) Description 05/30/2024 Pavilion Data Message Enc [facility] Outpatient Rehab [address] [place] [address] [facility] Provider PT Appointments Social History Tobacco Use Types Packs/Day Years [...] Date Recorded Patient Health Questionnaire-2 Score 0 01/12/2024 Comments No Sex and Gender Information Value Date Recorded Sex Assigned at Female 05/04/2024 9:21 AM SURVEY SUPERVISOR Legal Sex Female 8:14 PM CDT Gender Identity Not on file Sexual Orientation Not on file documented as of this encounter Plan of Treatment Upcoming Encounters Date Type Department Care Team (Late Contact Info) Description 05/04/2025 7:00 AM SURVEY SUPERVISOR Appointment [facility] [place] [address] [place] [address] [place] [address] [facility] [place] [address] documented as of this encounter Visit Diagnoses Not on filedocumented in this encounter Additional Health Concerns Assessment Noted Time PHQ-9 Depression Total Score: 8 01/04/20 24 4:22 PM CDT documented as of this encounter Care Teams Book Cleaner Relationship Specialty Start Date End Date Edith Stark, ELI [address] [place] [address] PCP - General Nurse Practitioner Family 03/23/23 documented as of this encounter
--- OUTSIDE RECORDS SUMMARY | 2025-04-14 06:16 | XMS_ITS | Continuity of Care Document ---
Author Organization [facility] Address [address] [place] [address] [place] [address] Care Team Providers Care Machine Adjuster Name Role Phone TEX BROOKS Primary Care Provider [phone] Assessment No assessment recorded. Plan of Treatment [...] Referral None recorded. Procedures None recorded. Surgeries None recorded. Imaging US, pelvis 2024 [address], [address], [place], [address], 03/15/2025 11:38:27 US, transvaanish nal [address], [address], [place], [address], 03/15/2025 11:38:27 Medication Orders None recorded. Patient TargetsNo targets recorded. Patient InstructionsNo instructions recorded. Reason for Referral None Reported. Results Created Date Observation Date Name Description Value Unit Range Abnormal Flag Note LastModifiedBy Organization Detail LastModifiedTime 03/14/2003/14/2025 kelley SMITH observ ation record ed. [facility] [address], [place], [address], 03/14/2025 18:15:33 03/14/2003/14/2025 US, trans vagin al No observ ation record ed. [facility] [address], [place], [address], 03/14/2025 18:15:43 03/14/2003/14/2025 US, pelvi s No observ ation record ed. [email or web address] Xuan [address], [place], [address], 03/15/2025 16:28:35 Result Notes None recorded. 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;Re corded Elsewhere: No Location : [facility] Sour ce: EHR Chronic : N Practice ID: 0001 Billab le Time: 02:30:00 PM Not Available [employer] 0 21:23:29 Micturitio n finding Active 2016 Urinary incontinenc e;Recorded Elsewhere: No Location : [facility] Sour ce: EHR Chronic : N Practice ID: 0001 Billab le Time: 02:30:00 PM Not Available [facility] 0 21:23:29 Finding of pattern of menstrual cycle Active 2016 Irregular interval between menstrual bleeding;Re corded Elsewhere: No Location : [facility] Sour ce: EHR Chronic : N Practice ID: 0001 Billab le Time: 02:30:00 PM Not Available [facility] 0 21:23:[address] Concept Active 2019 Anxiety disorder, unspecified ;Recorded Elsewhere: No Location : [facility] Sour ce: EHR Chronic : N Practice ID: 0001 Billab le Time: 09:45:00 AM Not Available [facility] 0 21:23:29 Finding of regularity of menstrual cycle Active 2019 Irregular menstruatio n, unspecified ;Recorded Elsewhere: No Location : [facility] Sour ce: EHR Chronic : N Practice ID: 0001 Billab le Time: 11:15:00 AM Not Available [facility] 0 21:23:29 Bleeding Active 2019 Abnormal vaginal bleeding;Re corded Elsewhere: No Location : [facility] Sour ce: EHR Chronic : N Practice ID: 0001 Billab le Time: 02:30:00 PM Not Available [facility] 0 21:23:29 Premenstru al dysphoric disorder 151831 Active 2019 Premenstrua l dysphoric disorder;Re corded Elsewhere: No Location : [facility] Sour ce: EHR Chronic : N Practice ID: 0001 Billab le Time: 02:30:00 PM Not Available [facility] 0 21:23:30 Emotional state finding Active 2019 Anxiety depression; Recorded Elsewhere: No Location : [facility] Sour ce: EHR Chronic : N Practice ID: 0001 Billab le Time: 01:00:00 PM Not Available [facility] 0 21:23:29 Problem Notes None recorded. Procedures Surgical History Date Name Laterality Status Provider Name and Address Organization Details Recorded Time 04/20/19 24 Date of Last Mammogram completed Amalia Robbins [facility] 02/27/2025 17:37:32 04/01/20 23 HYSTEROSCOPY, WITH ENDOMETRIAL ABLATION (SURG) completed Chandrika Sánchez [facility] 05/05/2023 22:46:40 09/12/19 21 Date of Last Pap Smear completed Lynda [facility]irie [facility] 09/11/2020 15:43:37 07/20/19 21 Gstr rstcv px shrt ronak-en-y completed Lynda [place] 09/11/2020 15:47:50 04/20/19 13 Tubal Ligation completed Loretta Joshi [facility] 12/18/2022 15:06:08 04/20/19 12 section completed [facility] 09/11/2020 15:47:06 04/20/19 08 section completed [facility] 09/11/2020 15:46:58 04/20/19 05 section completed [facility] 09/11/2020 15:47:02 Cholecystectomy completed [facility] 09/11/2020 15:47:19 rectal polypectomy completed [facility] 09/11/2020 15:47:28 repair of umbilical hernia completed [facility] 09/11/2020 15:47:36 Dilation and Curettage completed [facility] 09/11/2020 15:48:03 Imaging Results None recorded. Procedure Notes None recorded. Medical Equipment None Reported. Allergies Allergen ID Allergen Name Allergen Category Reaction Reaction Severity Criticality Documentation Date Start Date Code Code System Note Provider Name and Address Organization Details Recorded Time 06407 ibuprofen medicatio n Not available Not available Not available 04/06/2020 5640 RxNorm Comme nt: [facility]at [facility]; Not Available [facility] 0 14:14:49 64792 paroxetin e Not available Not available Not available Not available 09/11/2020 95949 RxNorm [facility] 1 14:53:23 92001 bupropion Not available other Not available Not available 03/14/20252019 99495 RxNorm Intol eranc e Not Available teri - External Data Service - prod 16:50:51 22528 hydromorp gunner medicatio n rash Not available low 03/14/20252024 3423 RxNorm Not Available teri - External Data Service - prod 16:50:51 13924 diphenhyd ramine hydrochlo ride medicatio n hives Not available Not available 03/14/20252014 1362 RxNorm Not Available teri - External Data Service - prod 16:50:51 05834 paroxetin e hydrochlo ride medicatio n Not available Not available Not available 03/14/20252019 60948 0 RxNorm Intol eranc e Not Available teri - External Data Service - prod 16:50:53 Medications Name Sig Start Date Stop Date Status Note LastModified by Organization Details LastModified Time Prometriu m 200 mg capsule take 1 capsule by oral route every day for 10 days in the evening sequenti ally per 28 day cycle 06/02 completed Prescrib gómez Poon e: No Locat ion: [facility]ify By: jean carlos sevilla DateTime : 05/24/19 03:37:01 PM Not Available [...] Prescrib ed Elsewher e: No Locat ion: [facility] By: jean carlos Gunn er DateTime : 05/16/19 02:30:00 PM Not [...] Prescrib ed Elsewher e: No Locat ion: [facility] By: fabio Vega untroel DateTime : 05/09/19 11:45:00 AM Not Available [...] Prescrib ed Elsewher e: Yes [facility] By: damion cervantes DateTime : 06/11/19 02:30:00 PM Not Available [...] Prescrib ed Elsewher e: Yes [facility] By: gilberto hoskins DateTime : 05/07/19 [...] Not Available Not Available Not Available Vitals None Recorded Social History None recorded. Functional Status None [...] ICD10 Code Diagnosis IMO Codes Diagnosis Note [id number] Ervin Samaniego MD [facility] [address] [address] 02/27/2025 16:42:03 02/28/2025 08:52:40 Menorrhagia [id number] N92.0 [id number] This patient is a 44-year-ol d female [...] discuss with the patient prior to surgery. [id number] Ervin Samaniego MD [facility] [address] [address] 03/14/2025 16:50:09 03/14/2025 17:56:44 Menorrhagia [id number] N92.0 [id number] This patient is a 44-year-ol d female [...] Member ID Thurman Member ID Guarantor Name 03/14/2025 1 [facility] [id number] Mike Nowak [id number] Madonna Nowak 03/14/2025 2 [place] DEPARTMENT [place] AID Madonna Nowak [id number] Madonna Nowak OBGyn Episode No OBEpisode recorded.
--- OUTSIDE RECORDS SUMMARY | 2025-04-14 06:16 | XMS_ITS | Encounter Summary ---
Author Organization [facility] Address [facility] [place] [address] Care Team Providers Care Parent Coach Name Role Phone Lindy Melissa MD Primary Care Provider [facility] Philippe Najera MD Primary Care Provider [phone] Edith Stark NP Primary Care Provider Fannie Simpson [facility] Primary Care Provider + Ana Azar APRN Primary Care Provider + [phone] Edith Stark PATTERN GRADER SUPERVISOR Primary Care Provider Encounter Details Date Type Department Care Team (Late st Contact Info) Description 11/24/2017 Abstract [facility] CONVERSION [address] [place] [address] , Generic Conversion, Social History Tobacco Use Types Packs/Day Years Used Date Smoking Tobacco: Never Assessed Comments Unknown Sex and Gender Information Value Date Recorded Sex Assigned at Female 05/04/2024 9:21 AM HUMAN RESOURCES DEPARTMENT SUPERVISOR Legal Sex Female 8:14 PM CDT Gender Identity Not on file Sexual Orientation Not on file documented as of this encounter Plan of Treatment Upcoming Encounters Date Type Department Care Team (Late st Contact Info) Description 05/04/2025 7:00 AM HUMAN RESOURCES DEPARTMENT SUPERVISOR Appointment [facility] [place] [address] [place] [address] Edith Stark, PATTERN GRADER SUPERVISOR [address] [place] [address] documented as of this encounter Visit Diagnoses Not on filedocumented in this encounter Additional Health Concerns Infection Onset Date Last Indicated Resolved Time COVID-19 Rule Out 11/04/2019 11/04/2019 11/05/2019 10:48 PM CDT COVID-19 Rule Out 05/27/2023 05/27/2023 05/27/2023 9:47 AM HUMAN RESOURCES DEPARTMENT SUPERVISOR COVID-19 Rule Out 05/04/2024 05/04/2024 05/04/2024 9:52 AM HUMAN RESOURCES DEPARTMENT SUPERVISOR documented as of this encounter Care Teams Parent Coach Relationship Specialty Start Date End Date Lindy Melissa MD PCP - General INTERNAL MEDICINE 04/30/18 09/19/19 Philippe Ivory MD PCP - General INTERNAL MEDICINE 09/20/19 04/17/22 Edith Stark, ELI [address] [place] [address] PCP - General Nurse Practitioner Family 04/18/2205/26 Fannie Simpson FNP-BC [address] [place] [address] PCP - General Nurse Practitioner Family 05/27/2210/18 Ana Azar APRN [address] [place] [address] PCP - General NURSE PRACTITIONER 10/31/22 03/22/23 Edith Stark, PATTERN GRADER SUPERVISOR [address] [place] [address] PCP - General Nurse Practitioner Family 03/23/23 documented as of this encounter
--- OUTSIDE RECORDS SUMMARY | 2025-04-14 06:16 | XMS_ITS | Encounter Summary ---
Author Organization [facility] Address [address] [place] [address] Care Team Providers Care Jewelry Maker Name Role Phone Edith Stark NP Primary Care Provider Encounter Details Date Type Department Care Team (Late Contact Info) Description 07/07/2024 [employer] Message Enc [facility] [address] [place] [address] [facility] Social History Tobacco Use Types Packs/Day Years [...] Sex Assigned at Female 05/04/2024 9:21 AM YARDER Legal Sex Female 8:14 PM CDT Gender Identity Not on file Sexual Orientation Not on file documented as of this encounter Plan of Treatment Upcoming Encounters Date Type Department Care Team (Late Contact Info) Description 05/04/2025 7:00 AM YARDER Appointment [facility] [address] [place] [address] [place] [address] [facility] [place] [address] documented as of this encounter Visit Diagnoses Not on filedocumented in this encounter Additional Health Concerns Assessment Noted Time PHQ-9 Depression Total Score: 8 01/04/20 24 4:22 PM CDT documented as of this encounter Care Teams Jewelry Maker Relationship Specialty Start Date End Date Edith Stark, ELI [address] [place] [address] PCP - General Nurse Practitioner Family 03/23/23 documented as of this encounter
== END 2025-04-14 06:13 | disposition home or self-care (01) ==
PROVIDERS: PCP Nurse Practitioner Family; Visit Provider Obstetrics & Gynecology
DX: N92.0 Excessive and frequent menstruation with regular cycle (principal); Z01.818 Encounter for other preprocedural examination
CPT/HCPCS: 36415; 86850; 86900; 86901